=== PATIENT | male | born 1980 | race Caucasian/White ===

== ENCOUNTER 2019-08-20 13:10 | Inpatient (IN) | payer OTHER ==
[2019-08-20 14:51] VITALS: BMI 27.1
--- NOTE | 2019-08-20 15:21 | HP ---
COWS - Scale Resting Pulse: 0= [place] 80 or Below Sweatin= Chills/Flushing Restless Observation: 1= Difficult to Sit Still Pupil Size: 1= Pupils >than Normal Bone or Joint Aches: 1= Mild Discomfort Runny Nose/ Eye Tearin= Runny Nose/Eyes GI Upset > 30mins: 2= Nausea/Diarrhea Tremor Observation: 2= Slight Tremor Visible Yawning Observation: 1= 1-2x During Session Anxiety or Irritability: 2=Irritable/Anxious Goose Flesh Skin: 0=Smooth Skin COWS Score: 13 CIWA Score - Admission Criteria [facility] Guidelines: Admission for Medically Managed Detox: Requires at least one of the followin. CIWA greater than 12 2. Seizures within the past 24 hours 3. Delirium tremens within the past 24 hours 4. Hallucinations within the past 24 hours 5. Acute intervention needed for co occurring medical disorder 6. Acute intervention needed for co occurring psychiatric disorder 7. Severe withdrawal that cannot be handled at a lower level of care (continued vomiting, continued diarrhea, abnormal vital signs) requiring intravenous medication and/or fluids 8. Admission ROS S - HPI Chief Complaint: i nee help to stop using heroin,cocaine,marijuana Allergies/Adverse Reactions: Allergies Allergy/AdvReac Type Severity Reaction Status Date / Time No Known Allergies Allergy Verified 08/20/19 14:41 History of Present Illness: this 39 years old male with heroin,cocaine and marijuana dependence,seeking detox,withdrawal symptom, multiple admissions in detox last in 2014 first time for this facility unemployed nicotine dependence no significant period of sobriety plan for out patient program Exam Limitations: No Limitations - Ebola screening Have you traveled outside of the country in the last 21 days: No Have you had contact with anyone from an Ebola affected area: No Do you have a fever: No - Review of Systems Constitutional: Chills, Loss of Appetite, Malaise, Night Sweats, Changes in sleep EENT: reports: Tearing, Nose Congestion Respiratory: reports: No Symptoms reported Cardiac: reports: No Symptoms Reported GI: reports: Diarrhea, Nausea, Indigestion : reports: No Symptoms Reported Integumentary: reports: Dryness Neuro: reports: Headache, Tremors Endocrine: reports: No Symptoms Reported Hematology: reports: No Symptoms Reported Psychiatric: reports: Agitated, Anxious Other Systems: Reviewed and Negative Patient History - Patient Medical History Hx Anemia: No Hx Asthma: No Hx Chronic Obstructive Pulmonary Disease (COPD): No Hx Cancer: No Hx Cardiac Disorders: No Hx Congestive Heart Failure: No Hx Hypertension: No Hx Hypercholesterolemia: No Hx Pacemaker: No HX Cerebrovascular Accident: No Hx Seizures: No Hx Dementia: No Hx Diabetes: No Hx Gastrointestinal Disorders: No Hx Liver Disease: No Hx Genitourinary Disorders: No Hx Sexually Transmitted Disorders: No Hx Renal Disease (ESRD): No Hx Thyroid Disease: No Hx Human Immunodeficiency Virus (HIV): No (last 2017 negative) Hx Hepatitis C: No Hx Depression: No Hx Suicide Attempt: No Hx Bipolar Disorder: No Hx Schizophrenia: No Other Medical History: no suicidal,no homicidal - Patient Surgical History Past Surgical History: No - PPD History Previous Implant?: Yes Documented Results: Negative w/o proof Implanted On Prior [facility] Admission?: No PPD to be Administered?: Yes - Smoking Cessation Smoking history: Current every day smoker Have you smoked in the past 12 months: Yes Aproximately how many cigarettes per day: 20 Cigars Per Day: 0 Hx Chewing Tobacco Use: No Initiated information on smoking cessation: Yes 'Breaking Loose' booklet given: 08/20/19 - Substance & Tx. History Hx Alcohol Use: No Hx Substance Use: Yes Substance Use Type: Cocaine, Heroin Hx Substance Use Treatment: Yes (2014) - Substances abused Heroin Substance route: Injection Frequency: Daily Amount used: 10 bags Age of first use: 19 Date of last use: 08/19/19 Marijuana/Hashish Substance route: Smoking Frequency: Daily Amount used: 4- 5 bags Age of first use: 14 Date of last use: 08/19/19 Non-Rx Methadone Substance route: Oral Frequency: 1-2 times per week Amount used: 30mg or whatever I could get my hand on ' Age of first use: 24 Date of last use: 08/19/19 Buprenorphine Other (specify): 8/2mg Substance route: Oral Frequency: 1-3 times last 30 days Amount used: 3 strips 8 mgs/2 mg Age of first use: 24 Date of last use: 07/29/19 Admission Physical Exam [facility] - Vital Signs Vital Signs: Vital Signs - 24 hr 08/20/19 14:43 Temperature 97.8 F Pulse Rate 60 Respiratory 18 Rate Blood Pressure 110/66 - Physical General Appearance: Yes: Moderate Distress, Tremorous, Irritable, Sweating, Anxious HEENTM: Yes: Normal ENT Inspection, STEFANY, Pharynx Normal Respiratory: Yes: Lungs Clear, Normal Breath Sounds, No Respiratory Distress Neck: Yes: Within Normal Limits, Supple, Trachea in good position Breast: Yes: Within Normal Limits Cardiology: Yes: Within Normal Limits, Regular Rate, S1, S2 Abdominal: Yes: Within Normal Limits, Normal Bowel Sounds, Non Tender, Flat Genitourinary: Yes: Within Normal Limits Back: Yes: Muscle Spasm Musculoskeletal: Yes: Muscle Pain Extremities: Yes: Within Normal Limits, Normal Range of Motion, Tremors 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 - Detox or Rehab [facility] Level of Care: Medically Managed Detox Regimen/Protocol: Methadone Breathalyzer - Breathalyzer Breathalyzer: 0 Urine Drug Screen - Test Device Lot number: [id number] Expiration date: 03/21/21 - Control Is test valid?: Yes - Results Drug screen NEGATIVE: No Urine drug screen results: THC-Marijuana, MOP-Opiates Inpatient Rehab Admission - Rehab Decision to Admit Inpatient rehab admission?: No
[2019-08-20] MEDS ORDERED: MAGNESIUM CITRATE 300 ML BOTTLE PO PRN (15:32)
[2019-08-20] MEDS ORDERED: MAG HYDROX/AL HYDROX/SIMETH 30 ML UNIT-DOSE CUP PO PRN (15:32)
[2019-08-20] MEDS ORDERED: MENTHOL/PHENOL 1 EACH UD MM PRN (15:32)
[2019-08-20] MEDS ORDERED: IBUPROFEN 400 MG TABLET (FP) PO PRN (15:32)
[2019-08-20] MEDS ORDERED: BISMUTH SUBSALICYLATE 524 MG/30 ML UD PO PRN (15:32)
[2019-08-20] MEDS ORDERED: MAGNESIUM HYDROX 2400MG/30ML ORAL SUSPENSION 30 ML CUP PO PRN (15:32)
[2019-08-20] MEDS ORDERED: ACETAMINOPHEN 325 MG TABLET (FP) PO PRN ×2 (15:32)
[2019-08-20] MEDS ORDERED: cloNIDine HCL 0.1 MG TABLET PO PRN (15:32)
[2019-08-20] MEDS ORDERED: NICOTINE POLACRILEX 2 MG GUM BUC PRN (15:32)
[2019-08-20] MEDS ORDERED: METHADONE HCL 10 MG TABLET (FOR DETOX USE ONLY) PO ONE (17:00)
[2019-08-20] MEDS: NICOTINE 21 MG/24 HOURS TOPICAL PATCH TD SCH (17:04)
[2019-08-20 17:55] LABS: HEMOGLOBIN 12.9 GM/dL (11.7-16.9); MCH 29.8 pg (25.7-33.7); MCHC 33.2 g/dl (32.0-35.9); MEAN CELL VOLUME 89.7 fl (80-96); PLATELET COUNT 276 K/MM3 (134-434); RBC 4.34 M/mm3 (4.00-5.60); WHITE BLOOD COUNT 9.4 K/mm3 (4.0-10.0)
[2019-08-20 18:00] LABS: ALBUMIN 3.5 g/dl (3.4-5.0); BILIRUBIN,TOTAL 0.3 mg/dL (0.2-1); BLOOD UREA NITROGEN 8.4 mg/dL (7-18); CALCIUM 8.8 mg/dL (8.5-10.1); CREATININE 0.9 mg/dL (0.55-1.3); POTASSIUM 3.8 mmol/L (3.5-5.1)
[2019-08-20] MEDS: THIAMINE HCL 100 MG TABLET (FP) PO SCH (22:09)
[2019-08-20] MEDS: MELATONIN 5 MG TABLETS PO PRN (22:09)
[2019-08-21] MEDS ORDERED: METHADONE HCL 10 MG TABLET (FOR DETOX USE ONLY) ONE (08:35)
[2019-08-21] MEDS ORDERED: METHADONE HCL 5 MG TABLET (FOR DETOX USE ONLY) ONE (08:36)
[2019-08-21] MEDS ORDERED: METHADONE (DETOX) 20 MG, METHADONE (DETOX) 5 MG PO ONE (10:00)
[2019-08-21] MEDS: PRENATAL VITAMINS W/ FOLIC ACID TABLET (FP) PO SCH (10:02)
[2019-08-21] MEDS: NICOTINE 21 MG/24 HOURS TOPICAL PATCH TD SCH (10:03)
[2019-08-21] MEDS: METHOCARBAMOL 500 MG TABLET PO PRN (10:04)
--- NOTE | 2019-08-21 11:50 | PN ---
S COWS - Scale Resting Pulse: 0= [place] 80 or Below Sweatin= No chills or Flushing Restless Observation: 1= Difficult to Sit Still Pupil Size: 1= Pupils >than Normal Bone or Joint Aches: 2= Severe Diffuse Aches Runny Nose/ Eye Tearin= Runny Nose/Eyes GI Upset > 30mins: 2= Nausea/Diarrhea Tremor Observation of Outstretched Hands: 2= Slight Tremor Visible Yawning Observation: 1= 1-2x During Session Anxiety or Irritability: 2=Irritable/Anxious Goose Flesh Skin: 0=Smooth Skin COWS Score: 13 S Progress Note (SOAP) Subjective: alert,irritable,anxious,pain in the body and back,tremor Objective: 08/21/19 11:48 Vital Signs Temperature 96.9 F L 08/21/19 09:15 Pulse Rate 49 L 08/21/19 09:15 Respiratory Rate 16 08/21/19 09:15 Blood Pressure 113/71 08/21/19 09:15 O2 Sat by Pulse Oximetry (%) Laboratory Last Values WBC 9.4 K/mm3 (4.0-10.0) 08/20/19 15:25 RBC 4.34 M/mm3 (4.00-5.60) 08/20/19 15:25 Hgb 12.9 GM/dL (11.7-16.9) 08/20/19 15:25 Hct 39.0 % (35.4-49) 08/20/19 15:25 MCV 89.7 fl (80-96) 08/20/19 15:25 MCH 29.8 pg (25.7-33.7) 08/20/19 15:25 MCHC 33.2 g/dl (32.0-35.9) 08/20/19 15:25 RDW 13.0 % (11.9-15.9) 08/20/19 15:25 Plt Count 276 K/MM3 (134-434) 08/20/19 15:25 MPV 9.0 fl (7.5-11.1) 08/20/19 15:25 Sodium 140 mmol/L (136-145) 08/20/19 15:25 Potassium 3.8 mmol/L (3.5-5.1) 08/20/19 15:25 Chloride 104 mmol/L (98-107) 08/20/19 15:25 Carbon Dioxide 28 mmol/L (21-32) 08/20/19 15:25 Anion Gap 8 MMOL/L (8-16) 08/20/19 15:25 BUN 8.4 mg/dL (7-18) 08/20/19 15:25 Creatinine 0.9 mg/dL (0.55-1.3) 08/20/19 15:25 Est GFR (CKD-EPI)AfAm 123.39 08/20/19 15:25 Est GFR (CKD-EPI)NonAf 106.46 08/20/19 15:25 Random Glucose 138 mg/dL (74-106) H 08/20/19 15:25 Calcium 8.8 mg/dL (8.5-10.1) 08/20/19 15:25 Total Bilirubin 0.3 mg/dL (0.2-1) 08/20/19 15:25 AST 13 U/L (15-37) L 08/20/19 15:25 ALT 21 U/L (13-61) 08/20/19 15:25 Alkaline Phosphatase 95 U/L (45-117) 08/20/19 15:25 Total Protein 7.0 g/dl (6.4-8.2) 08/20/19 15:25 Albumin 3.5 g/dl (3.4-5.0) 08/20/19 15:25 RPR Titer Nonreactive (NONREACTIVE) 08/20/19 15:25 HIV 1&2 Antibody Screen Negative 08/21/19 08:00 HIV P24 Antigen Negative 08/21/19 08:00 Assessment: 08/21/19 11:49 withdrawal symptom Plan: continue detox methadone regimen
--- NOTE | 2019-08-21 12:25 | EKG ---
Test Reason : Blood Pressure : / mmHG Vent. Rate : 049 BPM Atrial Rate : 049 BPM P-R Int : 150 ms QRS Dur : 086 ms QT Int : 450 ms P-R-T Axes : 069 014 022 degrees QTc Int : 406 ms SINUS BRADYCARDIA OTHERWISE NORMAL ECG NO PREVIOUS ECGS AVAILABLE Confirmed by GUMARO DIOP MD ([id number]) on 08/21/2019 12:24:57 PM Referred By: WALKER Confirmed By:GUMARO DIOP MD
[2019-08-21] MEDS: THIAMINE HCL 100 MG TABLET (FP) PO SCH (22:16)
[2019-08-21] MEDS: diazePAM 5 MG TABLET PO PRN (22:16)
[2019-08-21] MEDS: MELATONIN 5 MG TABLETS PO PRN (22:17)
[2019-08-22] MEDS ORDERED: METHADONE HCL 10 MG TABLET (FOR DETOX USE ONLY) PO ONE (10:00)
[2019-08-22] MEDS: PRENATAL VITAMINS W/ FOLIC ACID TABLET (FP) PO SCH (10:02)
[2019-08-22] MEDS: NICOTINE 21 MG/24 HOURS TOPICAL PATCH TD SCH (10:02)
--- NOTE | 2019-08-22 10:30 | PN ---
BHS COWS - Scale Resting Pulse: 0= [place] 80 or Below Sweatin= Chills/Flushing Restless Observation: 1= Difficult to Sit Still Pupil Size: 0= Normal to Room Light Bone or Joint Aches: 1= Mild Discomfort Runny Nose/ Eye Tearin= Nasal Congestion GI Upset > 30mins: 0= None Tremor Observation of Outstretched Hands: 1= Tremor [place], Not Seen Yawning Observation: 1= 1-2x During Session Anxiety or Irritability: 2=Irritable/Anxious Goose Flesh Skin: 0=Smooth Skin COWS Score: 8 BHS Progress Note (SOAP) Subjective: c/o of interrupted sleep, chills, anxious Objective: 08/22/19 10:32 Vital Signs Temperature 97.2 F L 08/22/19 09:02 Pulse Rate 55 L 08/22/19 09:02 Respiratory Rate 16 08/22/19 09:02 Blood Pressure 111/70 08/22/19 09:02 O2 Sat by Pulse Oximetry (%) Laboratory Last Values WBC 9.4 K/mm3 (4.0-10.0) 08/20/19 15:25 RBC 4.34 M/mm3 (4.00-5.60) 08/20/19 15:25 Hgb 12.9 GM/dL (11.7-16.9) 08/20/19 15:25 Hct 39.0 % (35.4-49) 08/20/19 15:25 MCV 89.7 fl (80-96) 08/20/19 15:25 MCH 29.8 pg (25.7-33.7) 08/20/19 15:25 MCHC 33.2 g/dl (32.0-35.9) 08/20/19 15:25 RDW 13.0 % (11.9-15.9) 08/20/19 15:25 Plt Count 276 K/MM3 (134-434) 08/20/19 15:25 MPV 9.0 fl (7.5-11.1) 08/20/19 15:25 Sodium 140 mmol/L (136-145) 08/20/19 15:25 Potassium 3.8 mmol/L (3.5-5.1) 08/20/19 15:25 Chloride 104 mmol/L (98-107) 08/20/19 15:25 Carbon Dioxide 28 mmol/L (21-32) 08/20/19 15:25 Anion Gap 8 MMOL/L (8-16) 08/20/19 15:25 BUN 8.4 mg/dL (7-18) 08/20/19 15:25 Creatinine 0.9 mg/dL (0.55-1.3) 08/20/19 15:25 Est GFR (CKD-EPI)AfAm 123.39 08/20/19 15:25 Est GFR (CKD-EPI)NonAf 106.46 08/20/19 15:25 Random Glucose 138 mg/dL (74-106) H 08/20/19 15:25 Calcium 8.8 mg/dL (8.5-10.1) 08/20/19 15:25 Total Bilirubin 0.3 mg/dL (0.2-1) 08/20/19 15:25 AST 13 U/L (15-37) L 08/20/19 15:25 ALT 21 U/L (13-61) 08/20/19 15:25 Alkaline Phosphatase 95 U/L (45-117) 08/20/19 15:25 Total Protein 7.0 g/dl (6.4-8.2) 08/20/19 15:25 Albumin 3.5 g/dl (3.4-5.0) 08/20/19 15:25 RPR Titer Nonreactive (NONREACTIVE) 08/20/19 15:25 HIV 1&2 Antibody Screen Negative 08/21/19 08:00 HIV P24 Antigen Negative 08/21/19 08:00 Assessment: 08/22/19 10:32 Aox3 no acute distress no adventitious breath sounds full ROM no gait disturbance withdrawal sx Plan: continue detox Patient plans to attend methadone maintenance program increase fluids continue to monitor
[2019-08-22] MEDS: diazePAM 5 MG TABLET PO PRN ×3 (12:22→22:07)
[2019-08-22] MEDS: MELATONIN 5 MG TABLETS PO PRN (22:07)
[2019-08-22] MEDS: THIAMINE HCL 100 MG TABLET (FP) PO SCH (22:08)
[2019-08-23] MEDS ORDERED: METHADONE HCL 5 MG TABLET (FOR DETOX USE ONLY) ONE (08:58)
[2019-08-23] MEDS ORDERED: METHADONE HCL 10 MG TABLET (FOR DETOX USE ONLY) ONE (08:58)
--- NOTE | 2019-08-23 09:53 | PN ---
BHS COWS - Scale Resting Pulse: 0= [place] 80 or Below Sweatin= Chills/Flushing Restless Observation: 1= Difficult to Sit Still Pupil Size: 0= Normal to Room Light Bone or Joint Aches: 1= Mild Discomfort Runny Nose/ Eye Tearin= None GI Upset > 30mins: 0= None Tremor Observation of Outstretched Hands: 0= None Yawning Observation: 1= 1-2x During Session Anxiety or Irritability: 2=Irritable/Anxious Goose Flesh Skin: 0=Smooth Skin COWS Score: 6 S Progress Note (SOAP) Subjective: c/o muscle aches, chills, and anxiety. Objective: 08/23/19 09:51 Vital Signs 08/23/19 08/23/19 08/23/19 03:30 06:02 09:04 Temperature 97.8 F Pulse Rate 50 L 56 L Respiratory 18 18 16 Rate Blood Pressure 98/57 L 103/71 Lab Results WBC 9.4 K/mm3 (4.0-10.0) 08/20/19 15:25 RBC 4.34 M/mm3 (4.00-5.60) 08/20/19 15:25 Hgb 12.9 GM/dL (11.7-16.9) 08/20/19 15:25 Hct 39.0 % (35.4-49) 08/20/19 15:25 MCV 89.7 fl (80-96) 08/20/19 15:25 MCHC 33.2 g/dl (32.0-35.9) 08/20/19 15:25 RDW 13.0 % (11.9-15.9) 08/20/19 15:25 Plt Count 276 K/MM3 (134-434) 08/20/19 15:25 Sodium 140 mmol/L (136-145) 08/20/19 15:25 Potassium 3.8 mmol/L (3.5-5.1) 08/20/19 15:25 Chloride 104 mmol/L (98-107) 08/20/19 15:25 Carbon Dioxide 28 mmol/L (21-32) 08/20/19 15:25 Anion Gap 8 MMOL/L (8-16) 08/20/19 15:25 BUN 8.4 mg/dL (7-18) 08/20/19 15:25 Creatinine 0.9 mg/dL (0.55-1.3) 08/20/19 15:25 Random Glucose 138 mg/dL (74-106) H 08/20/19 15:25 Calcium 8.8 mg/dL (8.5-10.1) 08/20/19 15:25 Labs noted. Assessment: 08/23/19 09:51 AOX3, in no acute respiratory distress. Full ROM, ambulating in the unit. Withdrawal symptoms. Plan: continue detox.
[2019-08-23] MEDS ORDERED: METHADONE (DETOX) 10 MG, METHADONE (DETOX) 5 MG PO ONE (10:00)
[2019-08-23] MEDS: PRENATAL VITAMINS W/ FOLIC ACID TABLET (FP) PO SCH (10:03)
[2019-08-23] MEDS: METHOCARBAMOL 500 MG TABLET PO PRN ×2 (10:04→22:23)
[2019-08-23] MEDS: diazePAM 5 MG TABLET PO PRN (10:05)
[2019-08-23] MEDS: NICOTINE 21 MG/24 HOURS TOPICAL PATCH TD SCH (10:07)
[2019-08-23 17:54] LABS: EPI CELLS 3.6 /HPF (0-5/HPF); HYALINE CASTS 41 /lpf (0-8); URINE APPEARANCE CLEAR; URINE BACTERIA 4.5 /hpf (NEGATIVE); URINE BILIRUBIN NEGATIVE (NEGATIVE); URINE COLOR YELLOW; URINE GLUCOSE (UA) NEGATIVE (NEGATIVE); URINE KETONE NEGATIVE (NEGATIVE); URINE LEUK ESTERASE TRACE (NEGATIVE); URINE NITRITE NEGATIVE (NEGATIVE); URINE PROTEIN NEGATIVE (NEGATIVE); URINE RBC 1 /hpf (0-4); URINE UROBILINOGEN 0.2 mg/dL (0.2-1.0); URINE WBC 11 /hpf (0-5)
[2019-08-23] MEDS: THIAMINE HCL 100 MG TABLET (FP) PO SCH (22:23)
[2019-08-23] MEDS: hydrOXYzine PAMOATE 25 MG CAPSULE (FP) PO PRN (22:23)
[2019-08-23] MEDS: MELATONIN 5 MG TABLETS PO PRN (22:23)
[2019-08-24] MEDS ORDERED: METHADONE HCL 10 MG TABLET (FOR DETOX USE ONLY) PO ONE (10:00)
[2019-08-24] MEDS: PRENATAL VITAMINS W/ FOLIC ACID TABLET (FP) PO SCH (10:01)
[2019-08-24] MEDS: hydrOXYzine PAMOATE 25 MG CAPSULE (FP) PO PRN ×2 (10:02→22:11)
[2019-08-24] MEDS: NICOTINE 21 MG/24 HOURS TOPICAL PATCH TD SCH (10:03)
--- NOTE | 2019-08-24 14:20 | PN ---
BHS COWS - Scale Resting Pulse: 0= [place] 80 or Below Sweatin= Chills/Flushing Restless Observation: 0= Sits Still Pupil Size: 0= Normal to Room Light Bone or Joint Aches: 1= Mild Discomfort Runny Nose/ Eye Tearin= None GI Upset > 30mins: 0= None Tremor Observation of Outstretched Hands: 0= None Yawning Observation: 0= None Anxiety or Irritability: 1=Feels Anxious/Irritable Goose Flesh Skin: 0=Smooth Skin COWS Score: 3 BHS Progress Note (SOAP) Subjective: 39 years old male admitted on 08/20/19 for opiate withdrawal sx management treated with methadone detox regimen patient tolerated well discuss medication assisted treatment program Objective: 08/24/19 14:19 Vital Signs Temperature 98.3 F 08/24/19 13:34 Pulse Rate 57 L 08/24/19 13:34 Respiratory Rate 18 08/24/19 13:34 Blood Pressure 103/64 08/24/19 13:34 O2 Sat by Pulse Oximetry (%) Laboratory Last Values WBC 9.4 K/mm3 (4.0-10.0) 08/20/19 15:25 RBC 4.34 M/mm3 (4.00-5.60) 08/20/19 15:25 Hgb 12.9 GM/dL (11.7-16.9) 08/20/19 15:25 Hct 39.0 % (35.4-49) 08/20/19 15:25 MCV 89.7 fl (80-96) 08/20/19 15:25 MCH 29.8 pg (25.7-33.7) 08/20/19 15:25 MCHC 33.2 g/dl (32.0-35.9) 08/20/19 15:25 RDW 13.0 % (11.9-15.9) 08/20/19 15:25 Plt Count 276 K/MM3 (134-434) 08/20/19 15:25 MPV 9.0 fl (7.5-11.1) 08/20/19 15:25 Sodium 140 mmol/L (136-145) 08/20/19 15:25 Potassium 3.8 mmol/L (3.5-5.1) 08/20/19 15:25 Chloride 104 mmol/L (98-107) 08/20/19 15:25 Carbon Dioxide 28 mmol/L (21-32) 08/20/19 15:25 Anion Gap 8 MMOL/L (8-16) 08/20/19 15:25 BUN 8.4 mg/dL (7-18) 08/20/19 15:25 Creatinine 0.9 mg/dL (0.55-1.3) 08/20/19 15:25 Est GFR (CKD-EPI)AfAm 123.39 08/20/19 15:25 Est GFR (CKD-EPI)NonAf 106.46 08/20/19 15:25 Random Glucose 138 mg/dL (74-106) H 08/20/19 15:25 Calcium 8.8 mg/dL (8.5-10.1) 08/20/19 15:25 Total Bilirubin 0.3 mg/dL (0.2-1) 08/20/19 15:25 AST 13 U/L (15-37) L 08/20/19 15:25 ALT 21 U/L (13-61) 08/20/19 15:25 Alkaline Phosphatase 95 U/L (45-117) 08/20/19 15:25 Total Protein 7.0 g/dl (6.4-8.2) 08/20/19 15:25 Albumin 3.5 g/dl (3.4-5.0) 08/20/19 15:25 Urine Color Yellow 08/23/19 10:13 Urine Appearance Clear 08/23/19 10:13 Urine pH 7.0 (5.0-8.0) 08/23/19 10:13 Ur Specific [place] 1.022 (1.010-1.035) 08/23/19 10:13 Urine Protein Negative (NEGATIVE) 08/23/19 10:13 Urine Glucose (UA) Negative (NEGATIVE) 08/23/19 10:13 Urine Ketones Negative (NEGATIVE) 08/23/19 10:13 Urine Blood Negative (NEGATIVE) 08/23/19 10:13 Urine Nitrite Negative (NEGATIVE) 08/23/19 10:13 Urine Bilirubin Negative (NEGATIVE) 08/23/19 10:13 Urine Urobilinogen 0.2 mg/dL (0.2-1.0) 08/23/19 10:13 Ur Leukocyte Esterase Trace (NEGATIVE) 08/23/19 10:13 Urine WBC (Auto) 11 /hpf (0-5) 08/23/19 10:13 Urine RBC (Auto) 1 /hpf (0-4) 08/23/19 10:13 Urine Casts (Auto) 41 /lpf (0-8) 08/23/19 10:13 U Epithel Cells (Auto) 3.6 /HPF (0-5/HPF) 08/23/19 10:13 Urine Bacteria (Auto) 4.5 /hpf (NEGATIVE) 08/23/19 10:13 RPR Titer Nonreactive (NONREACTIVE) 08/20/19 15:25 HIV 1&2 Antibody Screen Negative 08/21/19 08:00 HIV P24 Antigen Negative 08/21/19 08:00 lab noted Assessment: 08/24/19 14:20 opiate withdrawal sx Plan: continue methadone detox regimen
[2019-08-24] MEDS: MELATONIN 5 MG TABLETS PO PRN (22:11)
[2019-08-24] MEDS: THIAMINE HCL 100 MG TABLET (FP) PO SCH (22:11)
[2019-08-25] MEDS ORDERED: METHADONE HCL 5 MG TABLET (FOR DETOX USE ONLY) PO ONE (06:00)
[2019-08-25 06:14] VITALS: BP 110/73; PULSE 65; TEMP 97
--- NOTE | 2019-08-25 09:35 | DS ---
[facility] Detox Discharge Summary Admission Date: 08/20/19 Discharge Date: 08/25/19 - History Present History: Opioid Dependence Additional Comments: 39 years old male admitted on 08/20/19 for opiate withdrawal sx management treated with methadone detox regimen patient tolerated well patient is alert oriented x 3 respiratory clear lung bilaterally on auscultation abdomen soft no rebound tenderness skin warm and dry - Physical Exam Results Vital Signs: Vital Signs Temperature 97.0 F L 08/25/19 06:14 Pulse Rate 65 08/25/19 06:14 Respiratory Rate 18 08/25/19 06:14 Blood Pressure 110/73 08/25/19 06:14 O2 Sat by Pulse Oximetry (%) Pertinent Admission Physical Exam Findings: opiate withdrawal sx Vital Signs Temperature 97.0 F L 08/25/19 06:14 Pulse Rate 65 08/25/19 06:14 Respiratory Rate 18 08/25/19 06:14 Blood Pressure 110/73 08/25/19 06:14 O2 Sat by Pulse Oximetry (%) Laboratory Last Values WBC 9.4 K/mm3 (4.0-10.0) 08/20/19 15:25 RBC 4.34 M/mm3 (4.00-5.60) 08/20/19 15:25 Hgb 12.9 GM/dL (11.7-16.9) 08/20/19 15:25 Hct 39.0 % (35.4-49) 08/20/19 15:25 MCV 89.7 fl (80-96) 08/20/19 15:25 MCH 29.8 pg (25.7-33.7) 08/20/19 15:25 MCHC 33.2 g/dl (32.0-35.9) 08/20/19 15:25 RDW 13.0 % (11.9-15.9) 08/20/19 15:25 Plt Count 276 K/MM3 (134-434) 08/20/19 15:25 MPV 9.0 fl (7.5-11.1) 08/20/19 15:25 Sodium 140 mmol/L (136-145) 08/20/19 15:25 Potassium 3.8 mmol/L (3.5-5.1) 08/20/19 15:25 Chloride 104 mmol/L (98-107) 08/20/19 15:25 Carbon Dioxide 28 mmol/L (21-32) 08/20/19 15:25 Anion Gap 8 MMOL/L (8-16) 08/20/19 15:25 BUN 8.4 mg/dL (7-18) 08/20/19 15:25 Creatinine 0.9 mg/dL (0.55-1.3) 08/20/19 15:25 Est GFR (CKD-EPI)AfAm 123.39 08/20/19 15:25 Est GFR (CKD-EPI)NonAf 106.46 08/20/19 15:25 Random Glucose 138 mg/dL (74-106) H 08/20/19 15:25 Calcium 8.8 mg/dL (8.5-10.1) 08/20/19 15:25 Total Bilirubin 0.3 mg/dL (0.2-1) 08/20/19 15:25 AST 13 U/L (15-37) L 08/20/19 15:25 ALT 21 U/L (13-61) 08/20/19 15:25 Alkaline Phosphatase 95 U/L (45-117) 08/20/19 15:25 Total Protein 7.0 g/dl (6.4-8.2) 08/20/19 15:25 Albumin 3.5 g/dl (3.4-5.0) 08/20/19 15:25 Urine Color Yellow 08/23/19 10:13 Urine Appearance Clear 08/23/19 10:13 Urine pH 7.0 (5.0-8.0) 08/23/19 10:13 Ur Specific [place] 1.022 (1.010-1.035) 08/23/19 10:13 Urine Protein Negative (NEGATIVE) 08/23/19 10:13 Urine Glucose (UA) Negative (NEGATIVE) 08/23/19 10:13 Urine Ketones Negative (NEGATIVE) 08/23/19 10:13 Urine Blood Negative (NEGATIVE) 08/23/19 10:13 Urine Nitrite Negative (NEGATIVE) 08/23/19 10:13 Urine Bilirubin Negative (NEGATIVE) 08/23/19 10:13 Urine Urobilinogen 0.2 mg/dL (0.2-1.0) 08/23/19 10:13 Ur Leukocyte Esterase Trace (NEGATIVE) 08/23/19 10:13 Urine WBC (Auto) 11 /hpf (0-5) 08/23/19 10:13 Urine RBC (Auto) 1 /hpf (0-4) 08/23/19 10:13 Urine Casts (Auto) 41 /lpf (0-8) 08/23/19 10:13 U Epithel Cells (Auto) 3.6 /HPF (0-5/HPF) 08/23/19 10:13 Urine Bacteria (Auto) 4.5 /hpf (NEGATIVE) 08/23/19 10:13 RPR Titer Nonreactive (NONREACTIVE) 08/20/19 15:25 HIV 1&2 Antibody Screen Negative 08/21/19 08:00 HIV P24 Antigen Negative 08/21/19 08:00 lab noted glucose elevation patient agrees return to primary care provider for glucose tolerance testing or a1c level - Treatment Hospital Course: Detox Protocol Followed, Detoxed Safely, Responded well, Discharged Condition Good, Rehab Referral Accepted Patient has Accepted a Rehab Referral to: medication assisted treatment program - Medication Discharge Medications: Ambulatory Orders Naloxone HCl [Narcan] 4 mg NS ASDIR PRN #1 spray 08/25/19 - Diagnosis (1) Opioid dependence with withdrawal Current Visit: Yes Status: Acute (2) Nicotine dependence Current Visit: Yes Status: Acute Qualifiers: Nicotine product type: cigarettes Substance use status: in withdrawal Qualified Code(s): F17.213 - Nicotine dependence, cigarettes, with withdrawal - AMA Did Patient Leave Against Medical Advice: No COWS (PN) - Opiate Withdrawal Resting Pulse: 0= [place] 80 or Below Sweatin= Chills/Flushing Restless Observation: 0= Sits Still Pupil Size: 0= Normal to Room Light Bone or Joint Aches: 0= None Runny Nose/ Eye Tearin= None GI Upset > 30mins: 0= None Tremor Observation of Outstretched Hands: 0= None Yawning Observation: 0= None Anxiety or Irritability: 0= None Goose Flesh Skin: 0=Smooth Skin COWS Score: 1
== END 2019-08-25 08:45 | disposition home or self-care (01) | DRG 773 ==
LOC: YASAS 13:10 → Y3N 15:42
PROVIDERS: ADMIT Allergy & Immunology; ATTEND Allergy & Immunology
PROC: HZ2ZZZZ Detoxification Services for Substance Abuse Treatment (ICD-10-PCS; principal; 2019-08-20)
DX: F11.23 Opioid dependence with withdrawal (principal); F14.10 Cocaine abuse, uncomplicated; F12.10 Cannabis abuse, uncomplicated; F17.213 Nicotine dependence, cigarettes, with withdrawal
CPT/HCPCS: 36415; 80053; 81003; 85027; 86593; 87389; 93005; 93010

== ENCOUNTER 2019-10-27 16:20 | Inpatient (IN) | payer OTHER ==
[2019-10-27 18:37] VITALS: BMI 25.9
--- NOTE | 2019-10-27 22:06 | HP ---
COWS - Scale Resting Pulse: 0= [place] 80 or Below Sweatin=Flushed/Facial Moisture Restless Observation: 0= Sits Still Pupil Size: 1= Pupils >than Normal Bone or Joint Aches: 4=Acute Joint/Muscle Pain Runny Nose/ Eye Tearin= Runny Nose/Eyes GI Upset > 30mins: 3= Vomiting/Diarrhea (vomiting x 4, diarrhea x 3) Tremor Observation: 2= Slight Tremor Visible Yawning Observation: 1= 1-2x During Session Anxiety or Irritability: 2=Irritable/Anxious Goose Flesh Skin: 3=Piloerection COWS Score: 20 CIWA Score - Admission Criteria [facility] Guidelines: Admission for Medically Managed Detox: Requires at least one of the followin. CIWA greater than 12 2. Seizures within the past 24 hours 3. Delirium tremens within the past 24 hours 4. Hallucinations within the past 24 hours 5. Acute intervention needed for co occurring medical disorder 6. Acute intervention needed for co occurring psychiatric disorder 7. Severe withdrawal that cannot be handled at a lower level of care (continued vomiting, continued diarrhea, abnormal vital signs) requiring intravenous medication and/or fluids 8. Admitting History and Physical - Smoking History Smoking history: Current every day smoker Have you smoked in the past 12 months: Yes Aproximately how many cigarettes per day: 20 - Alcohol/Substance Use Hx Alcohol Use: No Admission ROS [facility] Chief Complaint: Heroin withdrawal symptoms Allergies/Adverse Reactions: Allergies Allergy/AdvReac Type Severity Reaction Status Date / Time No Known Allergies Allergy Verified 10/27/19 18:23 History of Present Illness: 39 years old male with a long history of heroin dependence (20 years )is seeking admission to detox. Patient was last admitted from the period 2018 - 08/25/2019 and reports that he relapsed immediately he was discharged. He reports insignificant period of sobriety. He denies medical history and psych. history. He denies seizures, blackouts and suicide ideation. Data Detail Level: [employer] Confidential Drug Utilization Report Search Terms: kelsey horta, 1980 Search Date: 10/27/2019 09:55:20 PM The Drug Utilization Report below displays all of the controlled substance prescriptions, if any, that your patient has filled in the last twelve months. The information displayed on this report is compiled from pharmacy submissions to the Department, and accurately reflects the information as submitted by the pharmacies. There are no results for the search terms that you entered. Exam Limitations: No Limitations - Ebola screening Have you traveled outside of the country in the last 21 days: No (N) Have you had contact with anyone from an Ebola affected area: No Do you have a fever: No - Review of Systems Constitutional: Chills, Loss of Appetite, Malaise, Night Sweats, Changes in sleep EENT: reports: Nose Congestion Cardiac: reports: No Symptoms Reported GI: reports: Diarrhea, Poor Appetite, Poor Fluid Intake, Vomiting, Abdominal cramping : reports: No Symptoms Reported Musculoskeletal: reports: Back Pain, Joint Pain Integumentary: reports: Dryness, Flushing Neuro: reports: Headache, Tremors Endocrine: reports: No Symptoms Reported Hematology: reports: No Symptoms Reported Psychiatric: reports: Mood/Affect Appropiate, Orientated x3 Other Systems: Reviewed and Negative Patient History - Patient Medical History Hx Anemia: No Hx Asthma: No Hx Chronic Obstructive Pulmonary Disease (COPD): No Hx Cancer: No Hx Cardiac Disorders: No Hx Congestive Heart Failure: No Hx Hypertension: No Hx Hypercholesterolemia: No Hx Pacemaker: No HX Cerebrovascular Accident: No Hx Seizures: No Hx Dementia: No Hx Diabetes: No Hx Gastrointestinal Disorders: No Hx Liver Disease: No Hx Genitourinary Disorders: No Hx Sexually Transmitted Disorders: No Hx Renal Disease (ESRD): No Hx Thyroid Disease: No Hx Human Immunodeficiency Virus (HIV): No (Negative 2019) Hx Hepatitis C: No Hx Depression: No Hx Suicide Attempt: No (Denies suicidal ideation at this time) Hx Bipolar Disorder: No Hx Schizophrenia: No - Patient Surgical History Past Surgical History: No - PPD History Previous Implant?: Yes Documented Results: Negative w/proof Implanted On Prior R Admission?: Yes Date: 08/22/19 PPD to be Administered?: No - Reproductive History Patient is a Female of Child Bearing Age (11 -55 yrs old): No (male) - Smoking Cessation Smoking history: Current every day smoker Have you smoked in the past 12 months: Yes Aproximately how many cigarettes per day: 20 Cigars Per Day: 0 Hx Chewing Tobacco Use: No Initiated information on smoking cessation: Yes 'Breaking Loose' booklet given: 10/27/19 - Substance & Tx. History Hx Alcohol Use: No Hx Substance Use: Yes Substance Use Type: Heroin, Marijuana Hx Substance Use Treatment: Yes ([facility]) - Substances abused Heroin Substance route: Injection Frequency: Daily Amount used: 12 bags Age of first use: 19 Date of last use: 10/27/19 Marijuana/Hashish Substance route: Smoking Frequency: Daily Amount used: 4- 5 bags Age of first use: 14 Date of last use: 08/19/19 Non-Rx Methadone Substance route: Oral Frequency: 1-2 times per week Amount used: 30mg or whatever I could get my hand on ' Age of first use: 24 Date of last use: 08/19/19 Buprenorphine Other (specify): 8/2mg Substance route: Oral Frequency: 1-3 times last 30 days Amount used: 3 strips 8 mgs/2 mg Age of first use: 24 Date of last use: 10/25/19 Admission Physical Exam [facility] - Vital Signs Vital Signs: Vital Signs - 24 hr 10/27/19 18:34 Temperature 98.6 F Pulse Rate 80 Respiratory 16 Rate Blood Pressure 132/74 - Physical General Appearance: Yes: Severe Distress, Tremorous, Irritable, Sweating, Anxious HEENTM: Yes: Within Normal Limits Respiratory: Yes: Lungs Clear, Normal Breath Sounds, No Respiratory Distress Neck: Yes: Within Normal Limits Breast: Yes: Breast Exam Deferred Cardiology: Yes: Regular Rhythm, Regular Rate Abdominal: Yes: Normal Bowel Sounds, Soft Genitourinary: Yes: Within Normal Limits Back: Yes: Normal Inspection Musculoskeletal: Yes: Within Normal Limits Extremities: Yes: Tremors Neurological: Yes: Within Normal Limits Integumentary: Yes: Warm, Track Singh (bilateral hands) Lymphatic: Yes: Within Normal Limits - Diagnostic (1) Cannabis abuse Current Visit: Yes Status: Chronic (2) IVDU (intravenous drug user) Current Visit: Yes Status: Acute (3) Nicotine dependence Current Visit: Yes Status: Chronic Qualifiers: Nicotine product type: cigarettes Substance use status: in withdrawal Qualified Code(s): F17.213 - Nicotine dependence, cigarettes, with withdrawal (4) Opioid dependence with withdrawal Current Visit: Yes Status: Acute Cleared for Admission [facility] - Detox or Rehab [facility] Level of Care: Medically Managed Detox Regimen/Protocol: Methadone Breathalyzer - Breathalyzer Breathalyzer: 0 Urine Drug Screen - Test Device Lot number: [id number] Expiration date: 07/21/21 - Control Is test valid?: Yes - Results Drug screen NEGATIVE: No Urine drug screen results: THC-Marijuana, FEN-Fentanyl, MOP-Opiates, BUP- Suboxone Inpatient Rehab Admission - Rehab Decision to Admit Inpatient rehab admission?: No
[2019-10-27] MEDS ORDERED: MAGNESIUM CITRATE 300 ML BOTTLE PO PRN (22:16)
[2019-10-27] MEDS ORDERED: MENTHOL/PHENOL 1 EACH UD MM PRN (22:16)
[2019-10-27] MEDS ORDERED: cloNIDine HCL 0.1 MG TABLET PO PRN (22:16)
[2019-10-27] MEDS ORDERED: IBUPROFEN 400 MG TABLET (FP) PO PRN (22:16)
[2019-10-27] MEDS ORDERED: BISMUTH SUBSALICYLATE 524 MG/30 ML UD PO PRN (22:16)
[2019-10-27] MEDS ORDERED: METHADONE HCL 10 MG TABLET (FOR DETOX USE ONLY) PO ONE (22:16)
[2019-10-27] MEDS ORDERED: MAG HYDROX/AL HYDROX/SIMETH 30 ML UNIT-DOSE CUP PO PRN (22:16)
[2019-10-27] MEDS ORDERED: NICOTINE POLACRILEX 2 MG GUM BUC PRN (22:16)
[2019-10-27] MEDS ORDERED: MAGNESIUM HYDROX 2400MG/30ML ORAL SUSPENSION 30 ML CUP PO PRN (22:16)
[2019-10-27] MEDS ORDERED: ACETAMINOPHEN 325 MG TABLET (FP) PO PRN ×2 (22:16)
[2019-10-27] MEDS: METHOCARBAMOL 500 MG TABLET PO PRN (23:24)
[2019-10-27] MEDS: MELATONIN 5 MG TABLETS PO PRN (23:24)
[2019-10-28] MEDS ORDERED: METHADONE HCL 10 MG TABLET (FOR DETOX USE ONLY) ONE (08:35)
[2019-10-28] MEDS ORDERED: METHADONE HCL 5 MG TABLET (FOR DETOX USE ONLY) ONE (08:35)
--- NOTE | 2019-10-28 09:26 | EKG ---
Test Reason : Blood Pressure : / mmHG Vent. Rate : 055 BPM Atrial Rate : 055 BPM P-R Int : 150 ms QRS Dur : 090 ms QT Int : 436 ms P-R-T Axes : 058 011 022 degrees QTc Int : 417 ms SINUS BRADYCARDIA OTHERWISE NORMAL ECG WHEN COMPARED WITH ECG OF 20-AUG-2019 16:22, NO SIGNIFICANT CHANGE WAS FOUND Confirmed by Chi Ford MD ([id number]) on 10/28/2019 9:26:15 AM Referred By: Juan Carty Confirmed By:Chi Ford MD
[2019-10-28 09:42] LABS: HEMATOCRIT 39.4 % (35.4-49); MCH 29.1 pg (25.7-33.7); MCHC 33.1 g/dl (32.0-35.9); MEAN PLT VOLUME 8.6 fl (7.5-11.1); PLATELET COUNT 305 K/MM3 (134-434); RBC 4.48 M/mm3 (4.00-5.60); RDW 13.6 % (11.9-15.9); WHITE BLOOD COUNT 7.8 K/mm3 (4.0-10.0)
[2019-10-28] MEDS: PRENATAL VITAMINS W/ FOLIC ACID TABLET (FP) PO SCH (09:55)
[2019-10-28] MEDS: NICOTINE 21 MG/24 HOURS TOPICAL PATCH TD SCH (09:55)
[2019-10-28] MEDS ORDERED: METHADONE (DETOX) 20 MG, METHADONE (DETOX) 5 MG PO ONE (10:00)
[2019-10-28 10:32] LABS: ALBUMIN 3.4 g/dl (3.4-5.0); BILIRUBIN,TOTAL 0.4 mg/dL (0.2-1); BLOOD UREA NITROGEN 12.3 mg/dL (7-18); CALCIUM 8.9 mg/dL (8.5-10.1); CREATININE 0.9 mg/dL (0.55-1.3); POTASSIUM 4.3 mmol/L (3.5-5.1); TOT PROT 6.9 g/dl (6.4-8.2)
--- NOTE | 2019-10-28 10:41 | PN ---
BHS COWS - Scale Resting Pulse: 0= [place] 80 or Below Sweatin= Chills/Flushing Restless Observation: 0= Sits Still Pupil Size: 1= Pupils >than Normal Bone or Joint Aches: 2= Severe Diffuse Aches Runny Nose/ Eye Tearin= Nasal Congestion GI Upset > 30mins: 2= Nausea/Diarrhea Tremor Observation of Outstretched Hands: 2= Slight Tremor Visible Yawning Observation: 1= 1-2x During Session Anxiety or Irritability: 2=Irritable/Anxious Goose Flesh Skin: 3=Piloerection COWS Score: 15 BHS Progress Note (SOAP) Subjective: 39 years old male admitted on 10/27/19 for opiate withdrawal sx management treating with methadone detox regimen feeling tired resting on bed limited conversation with staff Objective: 10/28/19 10:46 Vital Signs Temperature 98.1 F 10/28/19 09:10 Pulse Rate 57 L 10/28/19 09:10 Respiratory Rate 18 10/28/19 09:10 Blood Pressure 102/65 10/28/19 09:10 O2 Sat by Pulse Oximetry (%) Laboratory Last Values WBC 7.8 K/mm3 (4.0-10.0) 10/28/19 08:00 RBC 4.48 M/mm3 (4.00-5.60) 10/28/19 08:00 Hgb 13.0 GM/dL (11.7-16.9) 10/28/19 08:00 Hct 39.4 % (35.4-49) 10/28/19 08:00 MCV 88.0 fl (80-96) 10/28/19 08:00 MCH 29.1 pg (25.7-33.7) 10/28/19 08:00 MCHC 33.1 g/dl (32.0-35.9) 10/28/19 08:00 RDW 13.6 % (11.9-15.9) 10/28/19 08:00 Plt Count 305 K/MM3 (134-434) 10/28/19 08:00 MPV 8.6 fl (7.5-11.1) 10/28/19 08:00 Sodium 139 mmol/L (136-145) 10/28/19 08:00 Potassium 4.3 mmol/L (3.5-5.1) 10/28/19 08:00 Chloride 104 mmol/L (98-107) 10/28/19 08:00 Carbon Dioxide 29 mmol/L (21-32) 10/28/19 08:00 Anion Gap 6 MMOL/L (8-16) L 10/28/19 08:00 BUN 12.3 mg/dL (7-18) 10/28/19 08:00 Creatinine 0.9 mg/dL (0.55-1.3) 10/28/19 08:00 Est GFR (CKD-EPI)AfAm 123.39 10/28/19 08:00 Est GFR (CKD-EPI)NonAf 106.46 10/28/19 08:00 Random Glucose 107 mg/dL (74-106) H 10/28/19 08:00 Calcium 8.9 mg/dL (8.5-10.1) 10/28/19 08:00 Total Bilirubin 0.4 mg/dL (0.2-1) 10/28/19 08:00 AST 16 U/L (15-37) 10/28/19 08:00 ALT 24 U/L (13-61) 10/28/19 08:00 Alkaline Phosphatase 91 U/L (45-117) 10/28/19 08:00 Total Protein 6.9 g/dl (6.4-8.2) 10/28/19 08:00 Albumin 3.4 g/dl (3.4-5.0) 10/28/19 08:00 lab noted Assessment: 10/28/19 10:47 opiate withdrawal Plan: methadone regimen
[2019-10-28] MEDS ORDERED: FLU VACCINE QUAD 60 MCG/0.5 ML (MDV 19-20) IM ONE (12:00)
[2019-10-28] MEDS: METHOCARBAMOL 500 MG TABLET PO PRN (17:13)
[2019-10-28] MEDS: MELATONIN 5 MG TABLETS PO PRN (22:31)
[2019-10-28] MEDS: THIAMINE HCL 100 MG TABLET (FP) PO SCH (22:31)
[2019-10-29] MEDS: PRENATAL VITAMINS W/ FOLIC ACID TABLET (FP) PO SCH (09:47)
[2019-10-29] MEDS: METHOCARBAMOL 500 MG TABLET PO PRN (09:47)
[2019-10-29] MEDS: NICOTINE 21 MG/24 HOURS TOPICAL PATCH TD SCH (09:49)
[2019-10-29] MEDS ORDERED: METHADONE HCL 10 MG TABLET (FOR DETOX USE ONLY) PO ONE (10:00)
--- NOTE | 2019-10-29 10:45 | PN ---
BHS COWS - Scale Resting Pulse: 0= [place] 80 or Below Sweatin= Chills/Flushing Restless Observation: 0= Sits Still Pupil Size: 1= Pupils >than Normal Bone or Joint Aches: 2= Severe Diffuse Aches Runny Nose/ Eye Tearin= Nasal Congestion GI Upset > 30mins: 1= Stomach Cramp Tremor Observation of Outstretched Hands: 2= Slight Tremor Visible Yawning Observation: 1= 1-2x During Session Anxiety or Irritability: 2=Irritable/Anxious Goose Flesh Skin: 0=Smooth Skin COWS Score: 11 S Progress Note (SOAP) Subjective: 39 years old male admitted on 10/27/19 for opiate withdrawal sx management treating with methadone detox regimen feeling ok today resting in bed after breakfast encourage to attend detox groups and meetings Objective: 10/29/19 10:45 Vital Signs Temperature 98.3 F 10/29/19 09:45 Pulse Rate 56 L 10/29/19 09:45 Respiratory Rate 18 10/29/19 09:45 Blood Pressure 116/81 10/29/19 09:45 O2 Sat by Pulse Oximetry (%) Laboratory Last Values WBC 7.8 K/mm3 (4.0-10.0) 10/28/19 08:00 RBC 4.48 M/mm3 (4.00-5.60) 10/28/19 08:00 Hgb 13.0 GM/dL (11.7-16.9) 10/28/19 08:00 Hct 39.4 % (35.4-49) 10/28/19 08:00 MCV 88.0 fl (80-96) 10/28/19 08:00 MCH 29.1 pg (25.7-33.7) 10/28/19 08:00 MCHC 33.1 g/dl (32.0-35.9) 10/28/19 08:00 RDW 13.6 % (11.9-15.9) 10/28/19 08:00 Plt Count 305 K/MM3 (134-434) 10/28/19 08:00 MPV 8.6 fl (7.5-11.1) 10/28/19 08:00 Sodium 139 mmol/L (136-145) 10/28/19 08:00 Potassium 4.3 mmol/L (3.5-5.1) 10/28/19 08:00 Chloride 104 mmol/L (98-107) 10/28/19 08:00 Carbon Dioxide 29 mmol/L (21-32) 10/28/19 08:00 Anion Gap 6 MMOL/L (8-16) L 10/28/19 08:00 BUN 12.3 mg/dL (7-18) 10/28/19 08:00 Creatinine 0.9 mg/dL (0.55-1.3) 10/28/19 08:00 Est GFR (CKD-EPI)AfAm 123.39 10/28/19 08:00 Est GFR (CKD-EPI)NonAf 106.46 10/28/19 08:00 Random Glucose 107 mg/dL (74-106) H 10/28/19 08:00 Calcium 8.9 mg/dL (8.5-10.1) 10/28/19 08:00 Total Bilirubin 0.4 mg/dL (0.2-1) 10/28/19 08:00 AST 16 U/L (15-37) 10/28/19 08:00 ALT 24 U/L (13-61) 10/28/19 08:00 Alkaline Phosphatase 91 U/L (45-117) 10/28/19 08:00 Total Protein 6.9 g/dl (6.4-8.2) 10/28/19 08:00 Albumin 3.4 g/dl (3.4-5.0) 10/28/19 08:00 RPR Titer Nonreactive (NONREACTIVE) 10/28/19 08:00 lab noted Assessment: 10/29/19 10:45 opiate withdrawal Plan: methadone regimen
[2019-10-29] MEDS: THIAMINE HCL 100 MG TABLET (FP) PO SCH (21:47)
[2019-10-29] MEDS: MELATONIN 5 MG TABLETS PO PRN (21:47)
[2019-10-30] MEDS ORDERED: METHADONE (DETOX) 10 MG, METHADONE (DETOX) 5 MG PO ONE (10:00)
[2019-10-30] MEDS ORDERED: METHADONE HCL 10 MG TABLET (FOR DETOX USE ONLY) ONE (10:08)
[2019-10-30] MEDS ORDERED: METHADONE HCL 5 MG TABLET (FOR DETOX USE ONLY) ONE (10:09)
[2019-10-30] MEDS: NICOTINE 21 MG/24 HOURS TOPICAL PATCH TD SCH (10:21)
[2019-10-30] MEDS: PRENATAL VITAMINS W/ FOLIC ACID TABLET (FP) PO SCH (10:21)
--- NOTE | 2019-10-30 11:00 | PN ---
BHS COWS - Scale Resting Pulse: 0= [place] 80 or Below Sweatin= Chills/Flushing Restless Observation: 0= Sits Still Pupil Size: 1= Pupils >than Normal Bone or Joint Aches: 1= Mild Discomfort Runny Nose/ Eye Tearin= Runny Nose/Eyes GI Upset > 30mins: 1= Stomach Cramp Tremor Observation of Outstretched Hands: 1= Tremor [place], Not Seen Yawning Observation: 0= None Anxiety or Irritability: 1=Feels Anxious/Irritable Goose Flesh Skin: 0=Smooth Skin COWS Score: 8 BHS Progress Note (SOAP) Subjective: 39 years old male admitted on 10/27/19 for opiate withdrawal sx management treating [facility] methadone detox regimen feeling ok today discuss aftercare with staff that [facility] is one option Objective: 10/30/19 10:59 Vital Signs Temperature 98.4 F 10/30/19 09:30 Pulse Rate 53 L 10/30/19 09:30 Respiratory Rate 18 10/30/19 09:30 Blood Pressure 123/88 10/30/19 09:30 O2 Sat by Pulse Oximetry (%) Laboratory Last Values WBC 7.8 K/mm3 (4.0-10.0) 10/28/19 08:00 RBC 4.48 M/mm3 (4.00-5.60) 10/28/19 08:00 Hgb 13.0 GM/dL (11.7-16.9) 10/28/19 08:00 Hct 39.4 % (35.4-49) 10/28/19 08:00 MCV 88.0 fl (80-96) 10/28/19 08:00 MCH 29.1 pg (25.7-33.7) 10/28/19 08:00 MCHC 33.1 g/dl (32.0-35.9) 10/28/19 08:00 RDW 13.6 % (11.9-15.9) 10/28/19 08:00 Plt Count 305 K/MM3 (134-434) 10/28/19 08:00 MPV 8.6 fl (7.5-11.1) 10/28/19 08:00 Sodium 139 mmol/L (136-145) 10/28/19 08:00 Potassium 4.3 mmol/L (3.5-5.1) 10/28/19 08:00 Chloride 104 mmol/L (98-107) 10/28/19 08:00 Carbon Dioxide 29 mmol/L (21-32) 10/28/19 08:00 Anion Gap 6 MMOL/L (8-16) L 10/28/19 08:00 BUN 12.3 mg/dL (7-18) 10/28/19 08:00 Creatinine 0.9 mg/dL (0.55-1.3) 10/28/19 08:00 Est GFR (CKD-EPI)AfAm 123.39 10/28/19 08:00 Est GFR (CKD-EPI)NonAf 106.46 10/28/19 08:00 Random Glucose 107 mg/dL (74-106) H 10/28/19 08:00 Calcium 8.9 mg/dL (8.5-10.1) 10/28/19 08:00 Total Bilirubin 0.4 mg/dL (0.2-1) 10/28/19 08:00 AST 16 U/L (15-37) 10/28/19 08:00 ALT 24 U/L (13-61) 10/28/19 08:00 Alkaline Phosphatase 91 U/L (45-117) 10/28/19 08:00 Total Protein 6.9 g/dl (6.4-8.2) 10/28/19 08:00 Albumin 3.4 g/dl (3.4-5.0) 10/28/19 08:00 RPR Titer Nonreactive (NONREACTIVE) 10/28/19 08:00 lab noted Assessment: 10/30/19 11:03 opiate withdrawal Plan: methadone regimen
[2019-10-30] MEDS: MELATONIN 5 MG TABLETS PO PRN (22:31)
[2019-10-30] MEDS: THIAMINE HCL 100 MG TABLET (FP) PO SCH (22:34)
[2019-10-31] MEDS: PRENATAL VITAMINS W/ FOLIC ACID TABLET (FP) PO SCH (09:45)
[2019-10-31] MEDS: NICOTINE 21 MG/24 HOURS TOPICAL PATCH TD SCH (09:46)
[2019-10-31] MEDS ORDERED: METHADONE HCL 10 MG TABLET (FOR DETOX USE ONLY) PO ONE (10:00)
--- NOTE | 2019-10-31 11:21 | PN ---
BHS COWS - Scale Resting Pulse: 0= [place] 80 or Below Sweatin= Chills/Flushing Restless Observation: 1= Difficult to Sit Still Pupil Size: 0= Normal to Room Light Bone or Joint Aches: 0= None Runny Nose/ Eye Tearin= None GI Upset > 30mins: 0= None Tremor Observation of Outstretched Hands: 0= None Yawning Observation: 0= None Anxiety or Irritability: 0= None Goose Flesh Skin: 0=Smooth Skin COWS Score: 2 BHS Progress Note (SOAP) Subjective: 39 years old male admitted on 10/27/19 for opiate withdrawal sx management treating [facility] methadone detox regimen feeling ok today- anticipate discharge tomorrow O: Vital Signs - 24 hr 10/30/19 10/30/19 10/30/19 13:00 17:57 22:46 Temperature 96.9 F L 96.6 F L 97.5 F L Pulse Rate 54 L 64 57 L Respiratory 18 18 18 Rate Blood Pressure 108/72 100/67 109/70 10/31/19 10/31/19 10/31/19 00:29 03:30 05:55 Temperature 98 F Pulse Rate 54 L Respiratory 18 18 18 Rate Blood Pressure 112/72 10/31/19 09:16 Temperature 99.6 F Pulse Rate 100 H Respiratory 18 Rate Blood Pressure 109/62 Laboratory Tests 10/28/19 10/28/19 10/28/19 08:00 08:00 08:00 WBC 7.8 RBC 4.48 Hgb 13.0 Hct 39.4 MCV 88.0 MCH 29.1 MCHC 33.1 RDW 13.6 Plt Count 305 MPV 8.6 Sodium 139 Potassium 4.3 Chloride 104 Carbon Dioxide 29 Anion Gap 6 L BUN 12.3 Creatinine 0.9 Est GFR (CKD-EPI)AfAm 123.39 Est GFR (CKD-EPI)NonAf 106.46 Random Glucose 107 H Calcium 8.9 Total Bilirubin 0.4 AST 16 ALT 24 Alkaline Phosphatase 91 Total Protein 6.9 Albumin 3.4 RPR Titer Nonreactive a/p: 39 years old male admitted on 10/27/19 for opiate withdrawal sx management treating [facility] methadone detox regimen- d/w counselor re [facility] Rx, MAT and rehab, may go to [facility] [place] tomorrow
[2019-10-31] MEDS: MELATONIN 5 MG TABLETS PO PRN (22:18)
[2019-10-31] MEDS: THIAMINE HCL 100 MG TABLET (FP) PO SCH (22:19)
[2019-11-01] MEDS ORDERED: METHADONE HCL 5 MG TABLET (FOR DETOX USE ONLY) PO ONE (06:00)
[2019-11-01 06:43] VITALS: BP 112/75; PULSE 53; TEMP 98.6
--- NOTE | 2019-11-01 12:14 | DS ---
[facility] Detox Discharge Summary Admission Date: 10/27/19 Discharge Date: 11/01/19 - History Present History: Cannabis Dependence, Opioid Dependence Additional Comments: Pt is medically cleared and discharge today. Pt completed the detox protocol. Pt is encouraged to follow-up with an outpatient CD program and also to follow- up with his pmd. Pt verabalized understanding. Pt is alert and oriented x3 and in no respiratory distress. Pertinent Past History: h/o cannabis and heroin use disorder. - Physical Exam Results Vital Signs: Vital Signs Temperature 98.6 F 11/01/19 06:42 Pulse Rate 53 L 11/01/19 06:42 Respiratory Rate 18 11/01/19 06:42 Blood Pressure 112/75 11/01/19 06:42 O2 Sat by Pulse Oximetry (%) Vital Signs 11/01/19 06:42 Temperature 98.6 F Pulse Rate 53 L Respiratory 18 Rate Blood Pressure 112/75 Laboratory Last Values WBC 7.8 K/mm3 (4.0-10.0) 10/28/19 08:00 RBC 4.48 M/mm3 (4.00-5.60) 10/28/19 08:00 Hgb 13.0 GM/dL (11.7-16.9) 10/28/19 08:00 Hct 39.4 % (35.4-49) 10/28/19 08:00 MCV 88.0 fl (80-96) 10/28/19 08:00 MCH 29.1 pg (25.7-33.7) 10/28/19 08:00 MCHC 33.1 g/dl (32.0-35.9) 10/28/19 08:00 RDW 13.6 % (11.9-15.9) 10/28/19 08:00 Plt Count 305 K/MM3 (134-434) 10/28/19 08:00 MPV 8.6 fl (7.5-11.1) 10/28/19 08:00 Sodium 139 mmol/L (136-145) 10/28/19 08:00 Potassium 4.3 mmol/L (3.5-5.1) 10/28/19 08:00 Chloride 104 mmol/L (98-107) 10/28/19 08:00 Carbon Dioxide 29 mmol/L (21-32) 10/28/19 08:00 Anion Gap 6 MMOL/L (8-16) L 10/28/19 08:00 BUN 12.3 mg/dL (7-18) 10/28/19 08:00 Creatinine 0.9 mg/dL (0.55-1.3) 10/28/19 08:00 Est GFR (CKD-EPI)AfAm 123.39 10/28/19 08:00 Est GFR (CKD-EPI)NonAf 106.46 10/28/19 08:00 Random Glucose 107 mg/dL (74-106) H 10/28/19 08:00 Calcium 8.9 mg/dL (8.5-10.1) 10/28/19 08:00 Total Bilirubin 0.4 mg/dL (0.2-1) 10/28/19 08:00 AST 16 U/L (15-37) 10/28/19 08:00 ALT 24 U/L (13-61) 10/28/19 08:00 Alkaline Phosphatase 91 U/L (45-117) 10/28/19 08:00 Total Protein 6.9 g/dl (6.4-8.2) 10/28/19 08:00 Albumin 3.4 g/dl (3.4-5.0) 10/28/19 08:00 RPR Titer Nonreactive (NONREACTIVE) 10/28/19 08:00 Labs noted. Pertinent Admission Physical Exam Findings: withdrawal symptoms. - Treatment Hospital Course: Detox Protocol Followed, Detoxed Safely, Responded well, Discharged Condition Good - Medication Discharge Medications: Ambulatory Orders Naloxone HCl [Narcan] 4 mg NS ASDIR PRN #1 spray 10/28/19 - Diagnosis (1) IVDU (intravenous drug user) Current Visit: Yes Status: Acute (2) Opioid dependence with withdrawal Current Visit: Yes Status: Acute (3) Cannabis abuse Current Visit: Yes Status: Chronic (4) Nicotine dependence Current Visit: Yes Status: Chronic Qualifiers: Nicotine product type: cigarettes Substance use status: in withdrawal Qualified Code(s): F17.213 - Nicotine dependence, cigarettes, with withdrawal (5) Cocaine abuse Current Visit: No Status: Acute - AMA Did Patient Leave Against Medical Advice: No
== END 2019-11-01 08:48 | disposition home or self-care (01) | DRG 773 ==
LOC: YASAS 16:20 → Y3N 22:38
PROVIDERS: ADMIT Allergy & Immunology; ATTEND Allergy & Immunology
PROC: HZ2ZZZZ Detoxification Services for Substance Abuse Treatment (ICD-10-PCS; principal; 2019-10-27)
DX: F11.23 Opioid dependence with withdrawal (principal); F14.10 Cocaine abuse, uncomplicated; F12.20 Cannabis dependence, uncomplicated; F17.210 Nicotine dependence, cigarettes, uncomplicated
CPT/HCPCS: 36415; 80053; 85027; 86593; 93005; 93010; G0008; Q2036

== ENCOUNTER 2021-01-02 00:16 | Emergency (ER) | payer OTHER ==
[2021-01-02 00:33] VITALS: BMI 24.2
[2021-01-02] MEDS ORDERED: METHADONE HCL 10 MG TABLET PO ONE (00:52)
[2021-01-02] MEDS ORDERED: METHADONE HCL 10 MG TABLET ONE (00:58)
[2021-01-02 07:57] VITALS: BP 130/60; PULSE 58; TEMP 98
== END 2021-01-02 08:17 ==
LOC: JER 00:16
DX: F11.10 Opioid abuse, uncomplicated (principal)
CPT/HCPCS: 99284-25

== ENCOUNTER 2021-01-02 08:20 | Inpatient (IN) | payer OTHER ==
[2021-01-02 09:25] VITALS: BMI 25.2
[2021-01-02] MEDS ORDERED: BISMUTH SUBSALICYLATE 524 MG/30 ML UD PO PRN (09:47)
[2021-01-02] MEDS ORDERED: NICOTINE POLACRILEX 2 MG GUM BUC PRN (09:47)
[2021-01-02] MEDS ORDERED: MAGNESIUM CITRATE 300 ML BOTTLE PO PRN (09:47)
[2021-01-02] MEDS ORDERED: ACETAMINOPHEN 325 MG TABLET (FP) PO PRN ×2 (09:47)
[2021-01-02] MEDS ORDERED: ONDANSETRON *ODT* 4 MG TABLET SL PRN (09:47)
[2021-01-02] MEDS ORDERED: MENTHOL/PHENOL 1 EACH UD MM PRN (09:47)
[2021-01-02] MEDS ORDERED: cloNIDine HCL 0.1 MG TABLET PO PRN (09:47)
[2021-01-02] MEDS ORDERED: MAG HYDROX/AL HYDROX/SIMETH 30 ML UNIT-DOSE CUP PO PRN (09:47)
[2021-01-02] MEDS ORDERED: MAGNESIUM HYDROX 2400MG/30ML ORAL SUSPENSION 30 ML CUP PO PRN (09:47)
[2021-01-02] MEDS ORDERED: NICOTINE 21 MG/24 HOURS TOPICAL PATCH ONE (10:18)
[2021-01-02] MEDS ORDERED: hydrOXYzine PAMOATE 25 MG CAPSULE (FP) PO ONE (10:18)
[2021-01-02] MEDS ORDERED: diazePAM 5 MG TABLET ONE (10:18)
[2021-01-02] MEDS: diazePAM 5 MG TABLET PO PRN ×2 (10:22→17:42)
[2021-01-02] MEDS: hydrOXYzine PAMOATE 25 MG CAPSULE (FP) PO SCH ×4 (10:23→22:42)
[2021-01-02] MEDS: NICOTINE 21 MG/24 HOURS TOPICAL PATCH TD SCH (10:23)
[2021-01-02] MEDS: PRENATAL VITAMINS W/ FOLIC ACID TABLET (FP) PO SCH (10:23)
[2021-01-02] MEDS: METHOCARBAMOL 500 MG TABLET PO PRN (12:32)
[2021-01-02] MEDS: IBUPROFEN 400 MG TABLET (FP) PO PRN (12:32)
[2021-01-02] MEDS: MELATONIN 5 MG TABLETS PO SCH (22:41)
[2021-01-02] MEDS: THIAMINE HCL 100 MG TABLET (FP) PO SCH (22:42)
[2021-01-03] MEDS: hydrOXYzine PAMOATE 25 MG CAPSULE (FP) PO SCH ×6 (06:09→23:42)
[2021-01-03] MEDS: diazePAM 5 MG TABLET PO PRN ×4 (06:18→23:42)
[2021-01-03] MEDS ORDERED: METHADONE HCL 10 MG TABLET (FOR DETOX USE ONLY) ONE (09:33)
[2021-01-03] MEDS ORDERED: METHADONE HCL 5 MG TABLET (FOR DETOX USE ONLY) ONE (09:33)
[2021-01-03] MEDS ORDERED: METHADONE (DETOX) 20 MG, METHADONE (DETOX) 5 MG PO ONE (10:00)
[2021-01-03] MEDS: PRENATAL VITAMINS W/ FOLIC ACID TABLET (FP) PO SCH (10:57)
[2021-01-03] MEDS: NICOTINE 21 MG/24 HOURS TOPICAL PATCH TD SCH (10:57)
[2021-01-03] MEDS: METHOCARBAMOL 500 MG TABLET PO PRN (18:29)
[2021-01-03] MEDS: IBUPROFEN 400 MG TABLET (FP) PO PRN (18:29)
[2021-01-03] MEDS: MELATONIN 5 MG TABLETS PO SCH ×2 (23:16→23:43)
[2021-01-03] MEDS: THIAMINE HCL 100 MG TABLET (FP) PO SCH (23:17)
[2021-01-04] MEDS: hydrOXYzine PAMOATE 25 MG CAPSULE (FP) PO SCH (06:00)
[2021-01-04] MEDS: diazePAM 5 MG TABLET PO PRN (06:01)
[2021-01-04 09:34] VITALS: BP 130/67; PULSE 88; TEMP 97.5
[2021-01-04] MEDS ORDERED: METHADONE HCL 10 MG TABLET (FOR DETOX USE ONLY) PO ONE (10:00)
[2021-01-04 11:55] LABS: HEMATOCRIT 44.9 % (35.4-49); HEMOGLOBIN 15.3 GM/dL (11.7-16.9); MCH 30.2 pg (25.7-33.7); MCHC 34.1 g/dl (32.0-35.9); MEAN CELL VOLUME 88.7 fl (80-96); PLATELET COUNT 247 K/MM3 (134-434); RBC 5.07 M/mm3 (4.00-5.60); WHITE BLOOD COUNT 7.9 K/mm3 (4.0-10.0)
[2021-01-04 12:19] LABS: POTASSIUM 4.3 mmol/L (3.5-5.1)
[2021-01-04 12:28] LABS: BLOOD UREA NITROGEN 14.1 mg/dL (7-18); CALCIUM 9.5 mg/dL (8.5-10.1)
[2021-01-04 12:33] LABS: BILIRUBIN,TOTAL 0.8 mg/dL (0.2-1); TOT PROT 8.4 g/dl (6.4-8.2)
[2021-01-05] MEDS ORDERED: METHADONE (DETOX) 10 MG, METHADONE (DETOX) 5 MG PO ONE (10:00)
[2021-01-06] MEDS ORDERED: METHADONE HCL 10 MG TABLET (FOR DETOX USE ONLY) PO ONE (10:00)
[2021-01-07] MEDS ORDERED: METHADONE HCL 5 MG TABLET (FOR DETOX USE ONLY) PO ONE (06:00)
== END 2021-01-04 10:40 | disposition left against medical advice (07) | DRG 770 ==
LOC: YASAS 08:20 → Y6N 11:40
PROVIDERS: ADMIT Allergy & Immunology; ATTEND Allergy & Immunology
PROC: HZ2ZZZZ Detoxification Services for Substance Abuse Treatment (ICD-10-PCS; principal; 2021-01-02)
DX: F11.23 Opioid dependence with withdrawal (principal); F12.20 Cannabis dependence, uncomplicated; F17.210 Nicotine dependence, cigarettes, uncomplicated; F19.24 Other psychoactive substance dependence with psychoactive substance-induced mood disorder
CPT/HCPCS: 36415; 80053; 85027; 86780; C9803; J0735; Q0162; U0003

== ENCOUNTER 2021-05-30 21:38 | Inpatient (IN) | payer OTHER ==
[2021-05-30] MEDS ORDERED: MENTHOL/PHENOL 1 EACH UD MM PRN (21:54)
[2021-05-30] MEDS ORDERED: IBUPROFEN 400 MG TABLET (FP) PO PRN (21:54)
[2021-05-30] MEDS ORDERED: MAGNESIUM CITRATE 300 ML BOTTLE PO PRN (21:54)
[2021-05-30] MEDS ORDERED: BISMUTH SUBSALICYLATE 524 MG/30 ML PO PRN (21:54)
[2021-05-30] MEDS ORDERED: MAGNESIUM HYDROX 2400MG/30ML ORAL SUSPENSION 30 ML CUP PO PRN (21:54)
[2021-05-30] MEDS ORDERED: ACETAMINOPHEN 325 MG TABLET (FP) PO PRN ×2 (21:54)
[2021-05-30] MEDS ORDERED: MAG HYDROX/AL HYDROX/SIMETH 30 ML UNIT-DOSE CUP PO PRN (21:54)
[2021-05-30] MEDS ORDERED: ONDANSETRON *ODT* 4 MG TABLET SL PRN (21:54)
[2021-05-30] MEDS ORDERED: methaDONE HCL 10 MG TABLET (FOR DETOX USE ONLY) PO ONE (21:55)
[2021-05-30] MEDS ORDERED: cloNIDine HCL 0.1 MG TABLET PO PRN (21:55)
[2021-05-30] MEDS ORDERED: MELATONIN 5 MG TABLETS PO SCH (22:00)
[2021-05-30 22:03] VITALS: BMI 24.2
[2021-05-31] MEDS: THIAMINE HCL 100 MG TABLET (FP) PO SCH ×2 (00:56→22:56)
[2021-05-31] MEDS: METHOCARBAMOL 500 MG TABLET PO PRN ×2 (00:59→10:10)
[2021-05-31] MEDS: hydrOXYzine PAMOATE 25 MG CAPSULE (FP) PO PRN ×2 (00:59→10:10)
[2021-05-31] MEDS ORDERED: PNEUMOCOCCAL 23 VACCINE 0.5 ML VIAL IM ONE (10:00)
[2021-05-31] MEDS ORDERED: PNEUMOC 13-VAL CONJ-DIP CRM/PF 0.5 ML DISP.SYRIN IM ONE (10:00)
[2021-05-31] MEDS ORDERED: methaDONE HCL 10 MG TABLET (FOR DETOX USE ONLY) ONE (10:01)
[2021-05-31] MEDS: PRENATAL VITAMINS W/ FOLIC ACID TABLET (FP) PO SCH (10:11)
[2021-05-31] MEDS: NICOTINE 14 MG/24 HOURS TOPICAL PATCH TD SCH (10:12)
[2021-05-31 10:47] LABS: HEMATOCRIT 37.5 % (35.4-49); HEMOGLOBIN 12.8 GM/dL (11.7-16.9); MCH 30.9 pg (25.7-33.7); MCHC 34.2 g/dl (32.0-35.9); MEAN CELL VOLUME 90.3 fl (80-96); MEAN PLT VOLUME 9.5 fl (7.5-11.1); PLATELET COUNT 192 10^3/uL (134-434); RBC 4.15 M/mm3 (4.00-5.60); RDW 13.8 % (11.9-15.9); WHITE BLOOD COUNT 5.2 K/mm3 (4.0-10.0)
[2021-05-31 11:11] LABS: CALCIUM 8.2 mg/dL (8.5-10.1)
[2021-05-31 11:13] LABS: ALBUMIN 3.2 g/dl (3.4-5.0); BLOOD UREA NITROGEN 8.4 mg/dL (7-18)
[2021-05-31 11:16] LABS: BILIRUBIN,TOTAL 0.2 mg/dL (0.2-1); CREATININE 1.1 mg/dL (0.55-1.3); TOT PROT 6.2 g/dl (6.4-8.2)
[2021-05-31 11:44] LABS: HIV INTERPRETATION NEGATIVE (NEGATIVE)
[2021-05-31] MEDS ORDERED: SUVOREXANT 10 MG TABLET PO PRN (22:00)
[2021-06-01] MEDS: METHOCARBAMOL 500 MG TABLET PO PRN (09:55)
[2021-06-01] MEDS: hydrOXYzine PAMOATE 25 MG CAPSULE (FP) PO PRN (09:55)
[2021-06-01] MEDS: PRENATAL VITAMINS W/ FOLIC ACID TABLET (FP) PO SCH (09:56)
[2021-06-01] MEDS ORDERED: methaDONE HCL 10 MG TABLET (FOR DETOX USE ONLY) PO ONE (10:00)
[2021-06-01] MEDS: diazePAM 5 MG TABLET PO PRN ×2 (12:27→22:26)
[2021-06-01] MEDS: NICOTINE 14 MG/24 HOURS TOPICAL PATCH TD SCH (12:28)
[2021-06-01] MEDS ORDERED: MASKS NR ONE (19:23)
[2021-06-01] MEDS: THIAMINE HCL 100 MG TABLET (FP) PO SCH (22:24)
[2021-06-02] MEDS ORDERED: methaDONE HCL 10 MG TABLET (FOR DETOX USE ONLY) ONE (09:18)
[2021-06-02] MEDS: NICOTINE 14 MG/24 HOURS TOPICAL PATCH TD SCH (10:53)
[2021-06-02] MEDS: PRENATAL VITAMINS W/ FOLIC ACID TABLET (FP) PO SCH (10:53)
[2021-06-02] MEDS: NICOTINE POLACRILEX 2 MG GUM BUC PRN ×2 (10:55→19:41)
[2021-06-02] MEDS: diazePAM 5 MG TABLET PO PRN (19:04)
[2021-06-02] MEDS: METHOCARBAMOL 500 MG TABLET PO PRN (23:10)
[2021-06-02] MEDS: hydrOXYzine PAMOATE 25 MG CAPSULE (FP) PO PRN (23:10)
[2021-06-02] MEDS: THIAMINE HCL 100 MG TABLET (FP) PO SCH (23:10)
[2021-06-03] MEDS ORDERED: methaDONE HCL 10 MG TABLET (FOR DETOX USE ONLY) PO ONE (10:00)
[2021-06-03] MEDS: METHOCARBAMOL 500 MG TABLET PO PRN (10:01)
[2021-06-03] MEDS: PRENATAL VITAMINS W/ FOLIC ACID TABLET (FP) PO SCH (10:01)
[2021-06-03] MEDS: NICOTINE 14 MG/24 HOURS TOPICAL PATCH TD SCH (10:01)
[2021-06-03] MEDS ORDERED: NICOTINE 10 MG CARTRIDGE (INHALER) IH PRN (10:45)
[2021-06-03] MEDS: NICOTINE POLACRILEX 2 MG GUM BUC PRN (12:58)
[2021-06-03 17:26] VITALS: TEMP 96.9
[2021-06-03] MEDS: diazePAM 5 MG TABLET PO PRN (18:12)
[2021-06-03 21:10] VITALS: BP 105/77; PULSE 54
[2021-06-03] MEDS: THIAMINE HCL 100 MG TABLET (FP) PO SCH (22:51)
[2021-06-04] MEDS: PRENATAL VITAMINS W/ FOLIC ACID TABLET (FP) PO SCH (09:41)
[2021-06-04] MEDS: NICOTINE 14 MG/24 HOURS TOPICAL PATCH TD SCH (09:41)
== END 2021-06-04 09:30 | disposition home or self-care (01) | DRG 773 ==
LOC: YASAS 21:38 → Y3N 05-31 00:34
PROVIDERS: ADMIT Allergy & Immunology; ATTEND Allergy & Immunology
PROC: HZ2ZZZZ Detoxification Services for Substance Abuse Treatment (ICD-10-PCS; principal; 2021-05-31)
DX: F11.23 Opioid dependence with withdrawal (principal); F14.20 Cocaine dependence, uncomplicated; F12.20 Cannabis dependence, uncomplicated; F17.210 Nicotine dependence, cigarettes, uncomplicated; F19.282 Other psychoactive substance dependence with psychoactive substance-induced sleep disorder; F19.24 Other psychoactive substance dependence with psychoactive substance-induced mood disorder; Z86.19 Personal history of other infectious and parasitic diseases; Z56.0 Unemployment, unspecified; Z59.0 Homelessness
CPT/HCPCS: 36415; 80053; 85027; 86780; 87389; 90732; C9803; G0009; U0003; U0005

== ENCOUNTER 2021-07-18 19:48 | Inpatient (IN) | payer OTHER ==
[2021-07-18 21:11] VITALS: BMI 25.8
[2021-07-18] MEDS ORDERED: MAG HYDROX/AL HYDROX/SIMETH 30 ML UNIT-DOSE CUP PO PRN (22:50)
[2021-07-18] MEDS ORDERED: BISMUTH SUBSALICYLATE 524 MG/30 ML PO PRN (22:50)
[2021-07-18] MEDS ORDERED: ACETAMINOPHEN 325 MG TABLET (FP) PO PRN ×2 (22:50)
[2021-07-18] MEDS ORDERED: NICOTINE POLACRILEX 2 MG GUM BUC PRN (22:50)
[2021-07-18] MEDS ORDERED: MENTHOL/PHENOL 1 EACH UD MM PRN (22:50)
[2021-07-18] MEDS ORDERED: MAGNESIUM HYDROX 2400MG/30ML ORAL SUSPENSION 30 ML CUP PO PRN (22:50)
[2021-07-18] MEDS ORDERED: MAGNESIUM CITRATE 300 ML BOTTLE PO PRN (22:50)
[2021-07-18] MEDS ORDERED: IBUPROFEN 400 MG TABLET (FP) PO PRN (22:50)
[2021-07-18] MEDS ORDERED: ONDANSETRON *ODT* 4 MG TABLET SL PRN (22:50)
[2021-07-18] MEDS ORDERED: methaDONE HCL 10 MG TABLET (FOR DETOX USE ONLY) PO ONE (22:51)
[2021-07-18] MEDS ORDERED: cloNIDine HCL 0.1 MG TABLET PO PRN (22:51)
[2021-07-19] MEDS: BACITRACIN 15 GM TUBE TOPICAL OINTMENT TP SCH ×2 (05:10→12:24)
[2021-07-19] MEDS ORDERED: methaDONE HCL 10 MG TABLET (FOR DETOX USE ONLY) ONE (09:46)
[2021-07-19] MEDS: NICOTINE 7 MG/24 HOURS TOPICAL PATCH TD SCH (09:50)
[2021-07-19] MEDS: PRENATAL VITAMINS W/ FOLIC ACID TABLET (FP) PO SCH (09:50)
[2021-07-19 10:43] LABS: HEMATOCRIT 41.9 % (35.4-49); MCH 30.8 pg (25.7-33.7); MCHC 33.4 g/dl (32.0-35.9); MEAN CELL VOLUME 92.1 fl (80-96); MEAN PLT VOLUME 8.9 fl (7.5-11.1); PLATELET COUNT 226 10^3/uL (134-434); RBC 4.55 M/mm3 (4.00-5.60); RDW 13.6 % (11.9-15.9); WHITE BLOOD COUNT 6.5 K/mm3 (4.0-10.0)
[2021-07-19 10:48] LABS: CALCIUM 9.2 mg/dL (8.5-10.1)
[2021-07-19 10:49] LABS: ALBUMIN 3.3 g/dl (3.4-5.0)
[2021-07-19 10:53] LABS: BILIRUBIN,TOTAL 0.4 mg/dL (0.2-1); TOT PROT 6.7 g/dl (6.4-8.2)
[2021-07-19] MEDS: METHOCARBAMOL 500 MG TABLET PO PRN ×2 (12:22→22:07)
[2021-07-19] MEDS: BACITRACIN 0.9 GM PACKET TP SCH ×2 (12:22→22:07)
[2021-07-19] MEDS: NICOTINE 10 MG CARTRIDGE (INHALER) IH PRN (12:43)
[2021-07-19] MEDS: MELATONIN 5 MG TABLETS PO SCH (22:07)
[2021-07-19] MEDS: THIAMINE HCL 100 MG TABLET (FP) PO SCH (22:07)
[2021-07-20] MEDS ORDERED: methaDONE HCL 10 MG TABLET (FOR DETOX USE ONLY) PO ONE (10:00)
[2021-07-20] MEDS: NICOTINE 7 MG/24 HOURS TOPICAL PATCH TD SCH (10:16)
[2021-07-20] MEDS: NICOTINE 10 MG CARTRIDGE (INHALER) IH PRN (10:16)
[2021-07-20] MEDS: PRENATAL VITAMINS W/ FOLIC ACID TABLET (FP) PO SCH (10:17)
[2021-07-20] MEDS: BACITRACIN 0.9 GM PACKET TP SCH ×2 (10:17→22:57)
[2021-07-20] MEDS: THIAMINE HCL 100 MG TABLET (FP) PO SCH (22:00)
[2021-07-20] MEDS: MELATONIN 5 MG TABLETS PO SCH (22:00)
[2021-07-20] MEDS: METHOCARBAMOL 500 MG TABLET PO PRN (22:00)
[2021-07-20] MEDS: hydrOXYzine PAMOATE 25 MG CAPSULE (FP) PO PRN (22:00)
[2021-07-20] MEDS: diazePAM 5 MG TABLET PO PRN (22:01)
[2021-07-21] MEDS ORDERED: methaDONE HCL 10 MG TABLET (FOR DETOX USE ONLY) ONE (08:46)
[2021-07-21] MEDS: NICOTINE 7 MG/24 HOURS TOPICAL PATCH TD SCH (10:07)
[2021-07-21] MEDS: PRENATAL VITAMINS W/ FOLIC ACID TABLET (FP) PO SCH (10:07)
[2021-07-21] MEDS: diazePAM 5 MG TABLET PO PRN ×4 (10:09→23:08)
[2021-07-21] MEDS: BACITRACIN 0.9 GM PACKET TP SCH ×2 (10:11→23:08)
[2021-07-21] MEDS: MELATONIN 5 MG TABLETS PO SCH (23:08)
[2021-07-21] MEDS: THIAMINE HCL 100 MG TABLET (FP) PO SCH (23:08)
[2021-07-22] MEDS: diazePAM 5 MG TABLET PO PRN ×4 (07:10→19:34)
[2021-07-22] MEDS: NICOTINE 7 MG/24 HOURS TOPICAL PATCH TD SCH (09:56)
[2021-07-22] MEDS: BACITRACIN 0.9 GM PACKET TP SCH ×2 (09:56→22:30)
[2021-07-22] MEDS: PRENATAL VITAMINS W/ FOLIC ACID TABLET (FP) PO SCH (09:57)
[2021-07-22] MEDS ORDERED: methaDONE HCL 10 MG TABLET (FOR DETOX USE ONLY) PO ONE (10:00)
[2021-07-22] MEDS: NICOTINE 10 MG CARTRIDGE (INHALER) IH PRN (10:26)
[2021-07-22] MEDS: MELATONIN 5 MG TABLETS PO SCH (22:30)
[2021-07-22] MEDS: THIAMINE HCL 100 MG TABLET (FP) PO SCH (22:30)
[2021-07-22] MEDS: hydrOXYzine PAMOATE 25 MG CAPSULE (FP) PO PRN (22:30)
[2021-07-23] MEDS: diazePAM 5 MG TABLET PO PRN (00:28)
[2021-07-23] MEDS: METHOCARBAMOL 500 MG TABLET PO PRN (06:26)
[2021-07-23 09:32] VITALS: BP 107/68; PULSE 104; TEMP 97.8
== END 2021-07-23 09:18 | disposition other institution (70) | DRG 773 ==
LOC: YASAS 19:48 → Y3N 07-19 11:37
PROVIDERS: ADMIT Allergy & Immunology; ATTEND Allergy & Immunology
PROC: HZ2ZZZZ Detoxification Services for Substance Abuse Treatment (ICD-10-PCS; principal; 2021-07-19)
DX: F11.23 Opioid dependence with withdrawal (principal); F14.20 Cocaine dependence, uncomplicated; F12.20 Cannabis dependence, uncomplicated; F17.210 Nicotine dependence, cigarettes, uncomplicated; Z86.19 Personal history of other infectious and parasitic diseases
CPT/HCPCS: 36415; 80053; 85027; 86780; C9803; U0003; U0005

== ENCOUNTER 2021-10-03 15:08 | Inpatient (IN) | payer OTHER ==
[2021-10-03] MEDS ORDERED: MENTHOL/PHENOL 1 EACH UD MM PRN (17:31)
[2021-10-03] MEDS ORDERED: MAGNESIUM CITRATE 300 ML BOTTLE PO PRN (17:31)
[2021-10-03] MEDS ORDERED: MAG HYDROX/AL HYDROX/SIMETH 30 ML UNIT-DOSE CUP PO PRN (17:31)
[2021-10-03] MEDS ORDERED: NICOTINE 10 MG CARTRIDGE (INHALER) IH PRN (17:31)
[2021-10-03] MEDS ORDERED: ONDANSETRON *ODT* 4 MG TABLET SL PRN (17:31)
[2021-10-03] MEDS ORDERED: BISMUTH SUBSALICYLATE 524 MG/30 ML PO PRN (17:31)
[2021-10-03] MEDS ORDERED: IBUPROFEN 400 MG TABLET (FP) PO PRN (17:31)
[2021-10-03] MEDS ORDERED: hydrOXYzine PAMOATE 25 MG CAPSULE (FP) PO PRN (17:31)
[2021-10-03] MEDS ORDERED: MAGNESIUM HYDROX 2400MG/30ML ORAL SUSPENSION 30 ML CUP PO PRN (17:31)
[2021-10-03] MEDS ORDERED: ACETAMINOPHEN 325 MG TABLET (FP) PO PRN ×2 (17:31)
[2021-10-03] MEDS ORDERED: cloNIDine HCL 0.1 MG TABLET PO PRN (17:32)
[2021-10-03] MEDS ORDERED: methaDONE HCL 10 MG TABLET (FOR DETOX USE ONLY) PO ONE (17:32)
[2021-10-03 19:10] VITALS: BMI 25.0
[2021-10-03] MEDS: diazePAM 5 MG TABLET PO PRN (19:55)
[2021-10-03] MEDS: METHOCARBAMOL 500 MG TABLET PO PRN (19:55)
[2021-10-03] MEDS: MELATONIN 5 MG TABLETS PO SCH (22:53)
[2021-10-03] MEDS: THIAMINE HCL 100 MG TABLET (FP) PO SCH (22:53)
[2021-10-04] MEDS ORDERED: methaDONE HCL 10 MG TABLET (FOR DETOX USE ONLY) PO ONE (10:00)
[2021-10-04] MEDS: diazePAM 5 MG TABLET PO PRN ×3 (10:24→19:57)
[2021-10-04] MEDS: METHOCARBAMOL 500 MG TABLET PO PRN ×2 (10:25→19:57)
[2021-10-04] MEDS: PRENATAL VITAMINS W/ FOLIC ACID TABLET (FP) PO SCH (10:25)
[2021-10-04 12:13] LABS: HEMOGLOBIN 13.1 GM/dL (11.7-16.9); MCH 30.6 pg (25.7-33.7); MCHC 33.7 g/dl (32.0-35.9); MEAN CELL VOLUME 90.9 fl (80-96); MEAN PLT VOLUME 9.1 fl (7.5-11.1); PLATELET COUNT 199 10^3/uL (134-434); RBC 4.29 M/mm3 (4.00-5.60); WHITE BLOOD COUNT 5.2 K/mm3 (4.0-10.0)
[2021-10-04 12:18] LABS: CALCIUM 8.8 mg/dL (8.5-10.1)
[2021-10-04 12:19] LABS: ALBUMIN 3.2 g/dl (3.4-5.0); BLOOD UREA NITROGEN 11.2 mg/dL (7-18)
[2021-10-04 12:23] LABS: TOT PROT 6.6 g/dl (6.4-8.2)
[2021-10-04 12:24] LABS: BILIRUBIN,TOTAL 0.4 mg/dL (0.2-1)
[2021-10-04] MEDS: THIAMINE HCL 100 MG TABLET (FP) PO SCH (23:06)
[2021-10-04] MEDS: MELATONIN 5 MG TABLETS PO SCH (23:06)
[2021-10-05] MEDS: diazePAM 5 MG TABLET PO PRN (05:37)
[2021-10-05] MEDS: METHOCARBAMOL 500 MG TABLET PO PRN (05:37)
[2021-10-05 09:02] VITALS: BP 119/76; PULSE 58; TEMP 98.2
[2021-10-05] MEDS ORDERED: methaDONE HCL 10 MG TABLET (FOR DETOX USE ONLY) PO ONE (10:00)
[2021-10-05] MEDS: PRENATAL VITAMINS W/ FOLIC ACID TABLET (FP) PO SCH (10:20)
[2021-10-06] MEDS ORDERED: methaDONE HCL 10 MG TABLET (FOR DETOX USE ONLY) PO ONE (10:00)
== END 2021-10-05 08:50 | disposition left against medical advice (07) | DRG 770 ==
LOC: YASAS 15:08 → Y6N 18:56
PROVIDERS: ADMIT Allergy & Immunology; ATTEND Allergy & Immunology
PROC: HZ2ZZZZ Detoxification Services for Substance Abuse Treatment (ICD-10-PCS; principal; 2021-10-03)
DX: F11.23 Opioid dependence with withdrawal (principal); F12.10 Cannabis abuse, uncomplicated; F17.213 Nicotine dependence, cigarettes, with withdrawal; R73.09 Other abnormal glucose; Z86.19 Personal history of other infectious and parasitic diseases
CPT/HCPCS: 36415; 80053; 82962; 85027; 86780; C9803; U0003; U0005

== ENCOUNTER 2021-10-21 11:18 | Inpatient (IN) | payer OTHER ==
[2021-10-21] MEDS ORDERED: MAGNESIUM HYDROX 2400MG/30ML ORAL SUSPENSION 30 ML CUP PO PRN (11:49)
[2021-10-21] MEDS ORDERED: MAG HYDROX/AL HYDROX/SIMETH 30 ML UNIT-DOSE CUP PO PRN (11:49)
[2021-10-21] MEDS ORDERED: methaDONE HCL 10 MG TABLET (FOR DETOX USE ONLY) PO ONE ×2 (11:49→16:15)
[2021-10-21] MEDS ORDERED: ONDANSETRON *ODT* 4 MG TABLET SL PRN (11:49)
[2021-10-21] MEDS ORDERED: ACETAMINOPHEN 325 MG TABLET (FP) PO PRN ×2 (11:49)
[2021-10-21] MEDS ORDERED: MENTHOL/PHENOL 1 EACH UD MM PRN (11:49)
[2021-10-21] MEDS ORDERED: IBUPROFEN 400 MG TABLET (FP) PO PRN (11:49)
[2021-10-21] MEDS ORDERED: NICOTINE 10 MG CARTRIDGE (INHALER) IH PRN (11:49)
[2021-10-21] MEDS ORDERED: cloNIDine HCL 0.1 MG TABLET PO PRN (11:49)
[2021-10-21] MEDS ORDERED: MAGNESIUM CITRATE 300 ML BOTTLE PO PRN (11:49)
[2021-10-21] MEDS ORDERED: METHOCARBAMOL 500 MG TABLET PO PRN (11:49)
[2021-10-21] MEDS ORDERED: BISMUTH SUBSALICYLATE 262 MG/15 ML BTL PO PRN (11:49)
[2021-10-21 11:56] VITALS: BMI 24.5
[2021-10-21] MEDS ORDERED: NALOXONE (NARCAN) HCL 4 MG/0.1 ML SPRAY NS PRN (11:56)
[2021-10-21] MEDS: hydrOXYzine PAMOATE 25 MG CAPSULE (FP) PO SCH ×3 (18:00→22:37)
[2021-10-21] MEDS: THIAMINE HCL 100 MG TABLET (FP) PO SCH (22:37)
[2021-10-21] MEDS: BACITRACIN 0.9 GM PACKET TP SCH (22:37)
[2021-10-21] MEDS: MELATONIN 5 MG TABLETS PO SCH (22:37)
[2021-10-22] MEDS: hydrOXYzine PAMOATE 25 MG CAPSULE (FP) PO SCH ×5 (07:12→22:44)
[2021-10-22] MEDS ORDERED: methaDONE HCL 10 MG TABLET (FOR DETOX USE ONLY) ONE (08:30)
[2021-10-22] MEDS: PRENATAL VITAMINS W/ FOLIC ACID TABLET (FP) PO SCH (10:06)
[2021-10-22] MEDS: BACITRACIN 0.9 GM PACKET TP SCH ×2 (10:06→22:43)
[2021-10-22 11:53] LABS: HEMATOCRIT 40.3 % (35.4-49); HEMOGLOBIN 13.2 GM/dL (11.7-16.9); MCH 29.6 pg (25.7-33.7); MCHC 32.8 g/dl (32.0-35.9); MEAN CELL VOLUME 90.1 fl (80-96); MEAN PLT VOLUME 8.6 fl (7.5-11.1); PLATELET COUNT 241 10^3/uL (134-434); RBC 4.47 M/mm3 (4.00-5.60); RDW 13.4 % (11.9-15.9); WHITE BLOOD COUNT 9.3 K/mm3 (4.0-10.0)
[2021-10-22 12:47] LABS: HIV INTERPRETATION NEGATIVE (NEGATIVE)
[2021-10-22] MEDS: THIAMINE HCL 100 MG TABLET (FP) PO SCH (22:44)
[2021-10-22] MEDS: MELATONIN 5 MG TABLETS PO SCH (22:44)
[2021-10-23] MEDS: hydrOXYzine PAMOATE 25 MG CAPSULE (FP) PO SCH ×5 (06:52→22:32)
[2021-10-23] MEDS ORDERED: methaDONE HCL 10 MG TABLET (FOR DETOX USE ONLY) PO ONE (10:00)
[2021-10-23] MEDS: PRENATAL VITAMINS W/ FOLIC ACID TABLET (FP) PO SCH (10:16)
[2021-10-23] MEDS: BACITRACIN 0.9 GM PACKET TP SCH ×2 (10:17→22:32)
[2021-10-23] MEDS: THIAMINE HCL 100 MG TABLET (FP) PO SCH (22:32)
[2021-10-23] MEDS: MELATONIN 5 MG TABLETS PO SCH (22:32)
[2021-10-24] MEDS: hydrOXYzine PAMOATE 25 MG CAPSULE (FP) PO SCH ×5 (06:34→23:03)
[2021-10-24] MEDS ORDERED: methaDONE HCL 10 MG TABLET (FOR DETOX USE ONLY) ONE (09:38)
[2021-10-24] MEDS: PRENATAL VITAMINS W/ FOLIC ACID TABLET (FP) PO SCH (10:14)
[2021-10-24] MEDS: BACITRACIN 0.9 GM PACKET TP SCH ×2 (10:14→23:03)
[2021-10-24] MEDS: THIAMINE HCL 100 MG TABLET (FP) PO SCH (23:03)
[2021-10-24] MEDS: MELATONIN 5 MG TABLETS PO SCH (23:03)
[2021-10-25] MEDS: hydrOXYzine PAMOATE 25 MG CAPSULE (FP) PO SCH ×5 (06:41→23:46)
[2021-10-25] MEDS ORDERED: methaDONE HCL 10 MG TABLET (FOR DETOX USE ONLY) PO ONE (10:00)
[2021-10-25] MEDS: PRENATAL VITAMINS W/ FOLIC ACID TABLET (FP) PO SCH (10:18)
[2021-10-25] MEDS: BACITRACIN 0.9 GM PACKET TP SCH ×2 (10:18→23:46)
[2021-10-25] MEDS ORDERED: diazePAM 5 MG TABLET PO ONE ×2 (11:13→22:00)
[2021-10-25] MEDS: MELATONIN 5 MG TABLETS PO SCH (23:46)
[2021-10-25] MEDS: THIAMINE HCL 100 MG TABLET (FP) PO SCH (23:46)
[2021-10-26] MEDS: hydrOXYzine PAMOATE 25 MG CAPSULE (FP) PO SCH (05:56)
[2021-10-26 09:31] VITALS: BP 116/72; PULSE 73; TEMP 97
== END 2021-10-26 09:28 | disposition home or self-care (01) | DRG 773 ==
LOC: YASAS 11:18 → Y3N 14:12
PROVIDERS: ADMIT Allergy & Immunology; ATTEND Allergy & Immunology
PROC: HZ2ZZZZ Detoxification Services for Substance Abuse Treatment (ICD-10-PCS; principal; 2021-10-21)
DX: F11.23 Opioid dependence with withdrawal (principal); F14.20 Cocaine dependence, uncomplicated; F12.20 Cannabis dependence, uncomplicated; F17.213 Nicotine dependence, cigarettes, with withdrawal; R00.1 Bradycardia, unspecified; Z86.19 Personal history of other infectious and parasitic diseases
CPT/HCPCS: 36415; 85027; 86780; 87389; C9803; U0003; U0005

== ENCOUNTER 2022-04-15 00:55 | Emergency (ER) | payer OTHER ==
[2022-04-15 01:10] VITALS: BMI 23.5
[2022-04-15] MEDS ORDERED: SODIUM CHLORIDE 0.9% 500 ML INFUS.BAG IV ONE (02:37)
[2022-04-15 02:44] LABS: BASO % 0.3 % (0-2.0); EOS % 1.9 % (0-4.5); HEMATOCRIT 37.8 % (35.4-49); HEMOGLOBIN 12.8 GM/dL (11.7-16.9); LYMPH % 31.8 % (8-40); MCH 30.4 pg (25.7-33.7); MCHC 33.7 g/dl (32.0-35.9); MEAN CELL VOLUME 90.1 fl (80-96); MEAN PLT VOLUME 8.3 fl (7.5-11.1); MONO % 9.3 % (3.8-10.2); NEUT % 56.7 % (42.8-82.8); PLATELET COUNT 199 10^3/uL (134-434); RDW 13.7 % (11.9-15.9); WHITE BLOOD COUNT 6.6 K/mm3 (4.0-10.0)
[2022-04-15 03:02] LABS: CHLORIDE 113 mmol/L (98-107); SODIUM 146 mmol/L (136-145)
[2022-04-15 03:05] LABS: ALBUMIN 3.4 g/dl (3.4-5.0); ANION GAP 4 MMOL/L (8-16); BLOOD UREA NITROGEN 13.6 mg/dL (7-18); CO2 29 mmol/L (21-32); GLUCOSE,RANDOM 57 mg/dL (74-106)
[2022-04-15 03:08] LABS: CREATININE 0.9 mg/dL (0.55-1.3); SGOT/AST 21 U/L (15-37); SGPT/ALT 23 U/L (13-61)
[2022-04-15 03:09] LABS: BILIRUBIN,TOTAL 0.2 mg/dL (0.2-1); TOT PROT 6.5 g/dl (6.4-8.2)
[2022-04-15 03:11] LABS: ALK PHOS 91 U/L (45-117)
[2022-04-15] MEDS ORDERED: LACTATED RINGERS SOLUTION 1000 ML INFUS.BAG IV ONE (03:20)
[2022-04-15 05:04] VITALS: BP 131/50; PULSE 56; TEMP 97.9
== END 2022-04-15 06:01 | disposition home or self-care (01) ==
LOC: JER 00:55
DX: F10.129 Alcohol abuse with intoxication, unspecified (principal)
CPT/HCPCS: 36415; 70450-TC; 72125-TC; 80053; 80307; 84484; 85025; 99285-25; C9803-CS; U0003; U0005

== ENCOUNTER 2022-04-15 09:26 | Inpatient (IN) | payer OTHER ==
[2022-04-15] MEDS ORDERED: ONDANSETRON *ODT* 4 MG TABLET SL PRN (09:42)
[2022-04-15] MEDS ORDERED: DICYCLOMINE HCL 10 MG CAPSULE PO PRN (09:42)
[2022-04-15] MEDS ORDERED: BISMUTH SUBSALICYLATE 524 MG/30 ML PO PRN (09:42)
[2022-04-15] MEDS ORDERED: MAGNESIUM CITRATE 300 ML BOTTLE PO PRN (09:42)
[2022-04-15] MEDS ORDERED: ACETAMINOPHEN 325 MG TABLET (FP) PO PRN (09:42)
[2022-04-15] MEDS ORDERED: LOPERAMIDE HCL 2 MG CAPSULE PO PRN (09:42)
[2022-04-15] MEDS ORDERED: MAGNESIUM HYDROX 2400MG/30ML ORAL SUSPENSION 30 ML CUP PO PRN (09:42)
[2022-04-15] MEDS ORDERED: BENZOCAINE/MENTHOL (CHLORASEPTIC ) LOZENGE MM PRN (09:42)
[2022-04-15] MEDS ORDERED: MAG HYDROX/AL HYDROX/SIMETH 30 ML UNIT-DOSE CUP PO PRN (09:42)
[2022-04-15] MEDS ORDERED: P-EPHED 60MG/TRIPROLIDI 2.5MG TABLET PO PRN (09:42)
[2022-04-15 09:48] VITALS: BMI 23.3
[2022-04-15] MEDS ORDERED: methaDONE HCL 40 MG DISPERSABLE TABLET PO SCH (10:15)
[2022-04-15] MEDS ORDERED: IBUPROFEN 600 MG TABLET (FP) PO ONE (12:25)
[2022-04-15] MEDS ORDERED: diazePAM 5 MG TABLET ONE (12:26)
[2022-04-15] MEDS: IBUPROFEN 600 MG TABLET (FP) PO PRN (12:28)
[2022-04-15] MEDS: diazePAM 5 MG TABLET PO SCH ×3 (12:28→22:44)
[2022-04-15] MEDS: PRENATAL VITAMINS W/ FOLIC ACID TABLET (FP) PO SCH (18:23)
[2022-04-15] MEDS: methaDONE HCL 40 MG DISPERSABLE TABLET PO SCH (18:24)
[2022-04-15] MEDS: MELATONIN 5 MG TABLETS PO SCH (22:44)
[2022-04-15] MEDS: THIAMINE HCL 100 MG TABLET (FP) PO SCH (22:44)
[2022-04-16] MEDS: diazePAM 5 MG TABLET PO SCH ×4 (05:27→22:37)
[2022-04-16] MEDS: methaDONE HCL 40 MG DISPERSABLE TABLET PO SCH (05:27)
[2022-04-16] MEDS: PRENATAL VITAMINS W/ FOLIC ACID TABLET (FP) PO SCH (10:10)
[2022-04-16] MEDS: LIDOCAINE VISCOUS 2% ORAL/TOP 15 ML UNIT-DOSE CUP MM PRN (10:12)
[2022-04-16 11:19] LABS: HIV INTERPRETATION NEGATIVE (NEGATIVE)
[2022-04-16] MEDS: NICOTINE 10 MG CARTRIDGE (INHALER) IH PRN (13:12)
[2022-04-16] MEDS: diazePAM 5 MG TABLET PO PRN (13:20)
[2022-04-16] MEDS ORDERED: NICOTINE POLACRILEX 2 MG GUM BUC PRN (18:04)
[2022-04-16] MEDS: THIAMINE HCL 100 MG TABLET (FP) PO SCH (22:37)
[2022-04-16] MEDS: MELATONIN 5 MG TABLETS PO SCH (22:37)
[2022-04-16] MEDS: IBUPROFEN 600 MG TABLET (FP) PO PRN (22:38)
[2022-04-17] MEDS: diazePAM 5 MG TABLET PO SCH ×3 (05:24→22:33)
[2022-04-17] MEDS: methaDONE HCL 40 MG DISPERSABLE TABLET PO SCH (05:24)
[2022-04-17] MEDS: METHOCARBAMOL 500 MG TABLET PO PRN ×3 (07:24→22:33)
[2022-04-17] MEDS: IBUPROFEN 600 MG TABLET (FP) PO PRN (07:24)
[2022-04-17] MEDS: PRENATAL VITAMINS W/ FOLIC ACID TABLET (FP) PO SCH (10:06)
[2022-04-17] MEDS: diazePAM 5 MG TABLET PO PRN ×2 (10:07→17:46)
[2022-04-17] MEDS: NICOTINE 10 MG CARTRIDGE (INHALER) IH PRN ×2 (10:53→17:47)
[2022-04-17] MEDS: hydrOXYzine PAMOATE 25 MG CAPSULE (FP) PO PRN (13:22)
[2022-04-17] MEDS: LIDOCAINE VISCOUS 2% ORAL/TOP 15 ML UNIT-DOSE CUP MM PRN (14:17)
[2022-04-17] MEDS: IBUPROFEN 400 MG TABLET (FP) PO PRN (14:19)
[2022-04-17] MEDS ORDERED: BENZOCAINE 20 % GEL TUBE MM PRN (14:24)
[2022-04-17] MEDS: ACETAMINOPHEN 325 MG TABLET (FP) PO PRN (17:48)
[2022-04-17] MEDS: MELATONIN 5 MG TABLETS PO SCH (22:33)
[2022-04-17] MEDS: THIAMINE HCL 100 MG TABLET (FP) PO SCH (22:33)
[2022-04-18] MEDS: diazePAM 5 MG TABLET PO SCH ×2 (05:08→17:45)
[2022-04-18] MEDS: methaDONE HCL 40 MG DISPERSABLE TABLET PO SCH (05:09)
[2022-04-18] MEDS: IBUPROFEN 400 MG TABLET (FP) PO PRN ×2 (10:11→22:37)
[2022-04-18] MEDS: hydrOXYzine PAMOATE 25 MG CAPSULE (FP) PO PRN ×2 (10:13→15:47)
[2022-04-18] MEDS: PRENATAL VITAMINS W/ FOLIC ACID TABLET (FP) PO SCH (10:13)
[2022-04-18] MEDS: ACETAMINOPHEN 325 MG TABLET (FP) PO PRN (15:47)
[2022-04-18] MEDS: NICOTINE 10 MG CARTRIDGE (INHALER) IH PRN (15:50)
[2022-04-18] MEDS: METHOCARBAMOL 500 MG TABLET PO PRN (17:46)
[2022-04-18] MEDS: IBUPROFEN 600 MG TABLET (FP) PO PRN (17:46)
[2022-04-18] MEDS: MELATONIN 5 MG TABLETS PO SCH (22:36)
[2022-04-18] MEDS: THIAMINE HCL 100 MG TABLET (FP) PO SCH (22:36)
[2022-04-19] MEDS ORDERED: diazePAM 5 MG TABLET PO ONE (06:00)
[2022-04-19 06:12] VITALS: BP 114/57; PULSE 48; TEMP 96.3
[2022-04-19] MEDS: methaDONE HCL 40 MG DISPERSABLE TABLET PO SCH (06:32)
[2022-04-19] MEDS: NICOTINE 10 MG CARTRIDGE (INHALER) IH PRN (07:41)
[2022-04-19] MEDS: IBUPROFEN 600 MG TABLET (FP) PO PRN (09:16)
[2022-04-19] MEDS: PRENATAL VITAMINS W/ FOLIC ACID TABLET (FP) PO SCH (09:16)
== END 2022-04-19 09:20 | disposition home or self-care (01) | DRG 773 ==
LOC: YASAS 09:26 → Y3N 14:19
PROVIDERS: ADMIT Allergy & Immunology; ATTEND Surgery
PROC: HZ2ZZZZ Detoxification Services for Substance Abuse Treatment (ICD-10-PCS; principal; 2022-04-15)
DX: F10.230 Alcohol dependence with withdrawal, uncomplicated (principal); F11.20 Opioid dependence, uncomplicated; F12.20 Cannabis dependence, uncomplicated; F17.210 Nicotine dependence, cigarettes, uncomplicated; F19.24 Other psychoactive substance dependence with psychoactive substance-induced mood disorder; R00.1 Bradycardia, unspecified; K08.89 Other specified disorders of teeth and supporting structures; Z86.19 Personal history of other infectious and parasitic diseases; Z56.0 Unemployment, unspecified; Z59.00 Homelessness unspecified
CPT/HCPCS: 36415; 87389; C9803-CS; U0003; U0005

== ENCOUNTER 2024-12-25 18:56 | Inpatient (IN) | payer OTHER ==
[2024-12-25 19:36] VITALS: BMI 25.8
[2024-12-25] MEDS ORDERED: MAGNESIUM HYDROX 2400MG/30ML ORAL SUSPENSION 30 ML CUP PO PRN (20:48)
[2024-12-25] MEDS ORDERED: MAG HYDROX/AL HYDROX/SIMETH 30 ML UNIT-DOSE CUP PO PRN (20:48)
[2024-12-25] MEDS ORDERED: ONDANSETRON *ODT* 4 MG TABLET SL PRN (20:48)
[2024-12-25] MEDS ORDERED: NALOXONE (NARCAN) HCL 4 MG/0.1 ML SPRAY NS PRN (20:48)
[2024-12-25] MEDS ORDERED: NICOTINE POLACRILEX 2 MG GUM BUC PRN (20:48)
[2024-12-25] MEDS ORDERED: BISMUTH SUBSALICYLATE 524 MG/30 ML PO PRN (20:48)
[2024-12-25] MEDS ORDERED: BENZONATATE 200 MG CAPSULE PO PRN (20:48)
[2024-12-25] MEDS ORDERED: IBUPROFEN 400 MG TABLET (FP) PO PRN (20:48)
[2024-12-25] MEDS ORDERED: BENZOCAINE/MENTHOL (CHLORASEPTIC ) LOZENGE MM PRN (20:48)
[2024-12-25] MEDS ORDERED: LOPERAMIDE HCL 2 MG CAPSULE PO PRN (20:48)
[2024-12-25] MEDS ORDERED: guaiFENesin 600 MG TABLET.ER (FP) PO PRN (20:48)
[2024-12-25] MEDS ORDERED: ACETAMINOPHEN 325 MG TABLET (FP) PO PRN (20:48)
[2024-12-25] MEDS ORDERED: POLYETHYLENE GLYCOL (HEALTHYLAX) 3350 17 GM PACKET PO PRN (20:48)
[2024-12-25] MEDS ORDERED: DICYCLOMINE HCL 10 MG CAPSULE PO PRN (20:48)
[2024-12-25] MEDS: MELATONIN 5 MG TABLETS PO SCH (22:01)
[2024-12-25] MEDS: THIAMINE 100 MG TABLET PO SCH (22:01)
[2024-12-25] MEDS: METHOCARBAMOL 500 MG TABLET PO PRN (22:01)
[2024-12-26] MEDS: hydrOXYzine PAMOATE 25 MG CAPSULE (FP) PO PRN (05:01)
[2024-12-26] MEDS: IBUPROFEN 600 MG TABLET (FP) PO PRN (05:01)
[2024-12-26] MEDS: methaDONE HCL 10 MG TABLET PO ONE (08:21)
[2024-12-26] MEDS: PRENATAL VITAMINS W/ FOLIC ACID TABLET (FP) PO SCH (10:03)
[2024-12-26] MEDS: NICOTINE 14 MG/24 HOURS TOPICAL PATCH TD SCH (10:03)
[2024-12-26] MEDS: cloNIDine HCL 0.1 MG TABLET PO SCH (10:03)
[2024-12-26] MEDS: methaDONE HCL 10 MG TABLET PO PRN (10:24)
[2024-12-26 15:26] LABS: HEMATOCRIT 37.6 % (35.4-49); MCH 30.9 pg (25.7-33.7); MCHC 34.6 g/dl (32.0-35.9); MEAN CELL VOLUME 89.4 fl (80-96); MEAN PLT VOLUME 8.7 fl (7.5-11.1); PLATELET COUNT 244 10^3/uL (134-434); RBC 4.21 M/mm3 (4.00-5.60); RDW 13.5 % (11.9-15.9); WHITE BLOOD COUNT 7.8 K/mm3 (4.0-10.0)
[2024-12-26 15:37] LABS: CHLORIDE 105 mmol/L (98-107); POTASSIUM 4.7 mmol/L (3.5-5.1); SODIUM 139 mmol/L (136-145)
[2024-12-26 15:40] LABS: CALCIUM 9.4 mg/dL (8.5-10.1)
[2024-12-26 15:41] LABS: ALBUMIN 3.7 g/dl (3.4-5.0); ANION GAP 3 mmol/L (4-13); BLOOD UREA NITROGEN 7.1 mg/dL (7-18); CO2 31 mmol/L (21-32); GLUCOSE,RANDOM 137 mg/dL (74-106)
[2024-12-26 15:44] LABS: CREATININE 0.9 mg/dL (0.55-1.3); SGOT/AST 21 U/L (15-37); SGPT/ALT 27 U/L (13-61)
[2024-12-26 15:46] LABS: BILIRUBIN,TOTAL 0.7 mg/dL (0.2-1); TOT PROT 7.3 g/dl (6.4-8.2)
[2024-12-26 15:47] LABS: ALK PHOS 90 U/L (45-117)
[2024-12-27] MEDS: methaDONE 40 MG, methaDONE 10 MG PO ONE (09:03)
[2024-12-28] MEDS: methaDONE 40 MG, methaDONE 20 MG PO ONE (09:44)
[2024-12-28] MEDS: cloNIDine HCL 0.1 MG TABLET PO PRN (22:03)
[2024-12-29] MEDS: methaDONE 40 MG, methaDONE 30 MG PO ONE (10:30)
[2024-12-30 06:27] VITALS: RESP 16
[2024-12-30 08:38] VITALS: BP 138/90; PULSE 71; TEMP 97.7
[2024-12-30] MEDS: methaDONE HCL 40 MG DISPERSABLE TABLET PO ONE (09:21)
[2024-12-31] MEDS ORDERED: methaDONE 80 MG, methaDONE 10 MG PO ONE (10:00)
== END 2024-12-30 09:43 | disposition home or self-care (01) | DRG 773 ==
LOC: YASAS 18:56 → Y6N 21:17
PROVIDERS: ADMIT Allergy & Immunology; ATTEND Family Medicine Addiction Medicine
PROC: HZ2ZZZZ Detoxification Services for Substance Abuse Treatment (ICD-10-PCS; principal; 2024-12-25)
DX: F11.23 Opioid dependence with withdrawal (principal); F12.20 Cannabis dependence, uncomplicated; F17.210 Nicotine dependence, cigarettes, uncomplicated; Z86.19 Personal history of other infectious and parasitic diseases; Z56.0 Unemployment, unspecified; Z59.00 Homelessness unspecified
CPT/HCPCS: 36415; 80053; 80305; 80307; 85027; 86780; 93005; 93010